=== PATIENT | female | born 2000 | race Caucasian/White ===

== ENCOUNTER 2020-03-02 10:51 | Emergency (ER) | payer MEDICAID, SELFPAY ==
[2020-03-02 10:57] VITALS: BP 131/78; PULSE 85; RESP 18; TEMP 36.6; O2SAT 100; BMI 37.8
--- NOTE | 2020-03-02 12:03 | ED_ITS ---
HPI - Animal Bite General Chief Complaint: Animal Bite Stated Complaint: dog bite Time Seen by Provider: 03/02/20 11:54 Source: patient Mode of arrival: ambulatory Limitations: no limitations History of Present Illness HPI narrative: Stepped on her dog last night causing her dog to bite her left foot. Cleaned with hydrogen peroxide last night and wrapped after applying topical antibiotic ointment. Took a dose of her [id number]'s amoxicillin. No fevers or chills. She tells me that her last tetanus is out-of-date. She also tells me that her dog is up-to-date on all his vaccines and is well. complaint: animal bite Onset (ago): day(s) Animal: dog Description of animal: household pet Mechanism: bite Location - Extremities: left: ankle Pain description: dull Context: provoked Associated symptoms: none Related Data Patient tetanus UTD: No Previous Rx's Medication Instructions Recorded amoxicillin-pot clavulanate 1 tab PO BID #14 tab 03/02/20 [Augmentin] Allergies Allergy/AdvReac Type Severity Reaction Status Date / Time No Known Allergies Allergy Unverified 11/21/19 16:41 [No Known Allergies*] Review of Systems Review of Systems: Yes all other systems are reviewed and are negative Constitutional: Constitutional: Reports no additional constitutional complaints, Denies body ache(s), Denies chills, Denies fever(s), Denies headache(s) and Denies weakness Eyes: Eyes: Reports no additional eye complaints and Denies change in vision ENT: Reports system reviewed and no additional complaints, except as documented, Denies dizziness, Denies headache(s), Denies nasal congestion, Denies nasal discharge and Denies neck pain Cardiovascular: Cardiovascular: Reports no additional cardiovascular complaints, Denies chest pain, Denies leg edema and Denies dyspnea Respiratory: Respiratory: Reports no additional respiratory complaints, Denies cough and Denies dyspnea Gastrointestinal: Gastrointestinal: Reports no additional gastrointestinal complaints, Denies abdominal pain, Denies diarrhea, Denies nausea and Denies vomiting Genitourinary: Genitourinary: Reports no additional female genitourinary complaints and Denies urinary incontinence Musculoskeletal: Musculoskeletal: Reports no additional musculoskeletal complaints, Denies back pain, Denies arthralgias, Denies joint swelling, Denies neck pain, Denies numbness and Denies tingling Integumentary/Breasts: Skin/Breast: Reports system reviewed and no additional complaints, except as docu and Denies rash Comments: bite Neurologic: Reports system reviewed and no additional complaints, except as documented, Denies Abnormal speech present, Denies dizziness, Denies headache(s), Denies numbness, Denies tingling and Denies weakness PMFSH Past Medical History Attestation statement: The following information was validated with the patient. Source: old records reviewed and nursing notes reviewed Medical History Asthma Social History Social History Advance Directives: No Advance Directives Information Provided: No Physical Exam Vital Signs: Vital Signs: Last Vital Signs Temp 97.9 F 03/02/20 10:57 Pulse 85 03/02/20 10:57 Resp 18 03/02/20 10:57 BP 131/78 03/02/20 10:57 Pulse Ox 100 03/02/20 10:57 Body Mass Index 37.8 Const: General: cooperative, healthy appearing, comfortable and no acute distress Orientation/consciousness: patient oriented x3 Limitations: no limitations HENMT: Head: Yes normal to inspection Ears: hearing grossly normal bilaterally General nose exam: Normal external nose present Face and sinus: Yes normal facial exam Mouth: Normal oral and palatal mucosa present Throat: Yes posterior oropharynx normal Eyes: General: appearance normal, both eyes and all related structures Pu pils: Equal, round and reactive pupils present Neck: Neck: Yes normal visual inspection Chest: Chest palpation & inspection: normal inspection of the chest Resp: Effort & Inspection: normal respiratory effort Auscultation: clear to auscultation bilaterally Cardio: Rate: regular rate Rhythm: regular rhythm Peripheral pulses: Peripheral pulses 2+ throughout GI: Inspection: Yes normal to inspection Palpation (GI): Soft to palpation and nontender Auscultation: normal bowel sounds Back/Spine/Pelvis: Thoracic/Lumbar Spine: thoracic and lumbar spine normal to inspection Skin: General skin exam: no rashes or lesions noted Neuro: General: patient oriented x3, no focal motor deficits and normal sensation to monofilament Cranial nerves: Yes Equal, round and reactive pupils present Cognition (Neuro): normal cognition Speech: No Abnormal speech present Gait exam (Neuro): Normal gait present Motor exam (neuro): 5/5 motor strength present throughout Extrem: Other: To the posterior left ankle there are several abrasions noted with no surrounding erythema, exudate, swelling, tenderness. Full range of motion of the ankle with no difficulty. Neurovascularly intact distally General: Yes normal to inspection Course Course Course Narrative: Patient here with dog bite to the left foot. This is her dog and is up-to-date with all immunizations. Wound appears well with no active signs of infection. Tetanus updated here in the emergency department. Given 1st dose of antibiotics and will send home with 7 days of Augmentin prophylactically. Reviewed worrisome signs and symptoms and when to return to the emergency department. Comfortable discharge home. Discharge Plan Discharge Clinical Impression: Bite by animal Dog bite Qualifiers: Encounter type: initial encounter Qualified Code(s): W54.0XXA - Bitten by dog, initial encounter Patient Disposition: Home, Self-Care Instructions: Animal Bite (ED) Additional Instructions: Continue to apply a triple antibiotic ointment daily and keep it covered Start antibiotic tonight at dinner time Return for increasing redness, drainage or difficulty moving the joint Prescriptions: New amoxicillin-pot clavulanate [Augmentin] 875-125 mg tablet 1 tab PO BID Qty: 14 RF: 0 Referrals: Mark Gray MD [Primary Care Provider] - 2 days Interventions: ED Discharge Assessment Last Done: 03/02/20 12:46 Discharge Date/Time: 03/02/20 12:45
[2020-03-02] MEDS: Amoxicillin/Potassium Clav 875 MG TABLET PO (12:23)
--- NOTE | 2020-03-02 12:47 | PC.NURSE ---
animal bite report faxed to [facility]
--- NOTE | 2020-03-02 12:49 | PC.NURSE ---
antibiotics and tetanus updated
== END 2020-03-02 12:45 | disposition home or self-care (01) ==
LOC: HO.ED 12:09
PROVIDERS: Emergency Provider Emergency Medicine Emergency Medical Services; PCP Internal Medicine
DX: S90.812A Abrasion, left foot, initial encounter (principal); W54.0XXA Bitten by dog, initial encounter; Y93.89 Activity, other specified; Y92.019 Unspecified place in single-family (private) house as the place of occurrence of the external cause; Y99.9 Unspecified external cause status
CPT/HCPCS: 90471; 90715; 99283; 99284

== ENCOUNTER 2020-06-17 11:56 | Outpatient (REF) | payer MEDICAID, SELFPAY ==
[2020-06-17 14:00] LABS: MANUAL DIFF FLAG NO
[2020-06-17 14:16] LABS: Basophils Absolute Auto 0.1 X10*3/uL (0.0-0.2); Basophils Percent Auto 1.1 % (0-2); Eosinophils Absolute Auto 0.3 X10*3/uL (0.0-0.4); Eosinophils Percent Auto 2.6 % (0-4); Hematocrit 42.7 % (37-47); Imm Gran Abs Auto 0.03 X10*3/uL (0.00-0.03); Imm Gran Pct Auto 0.3 % (0.0-0.4); Lymphocytes Absolute Auto 2.3 X10*3/uL (1.2-4.9); Lymphocytes Percent Auto 23.3 % (20-40); Mean Corpuscular HGB Conc 32.8 g/dl (31.0-35.0); Mean Corpuscular Hemoglobin 28.5 pg (27.0-33.0); Mean Corpuscular Volume 86.8 fL (80-98); Mean Platelet Volume 12.5 fL (9.4-12.3); Monocytes Absolute Auto 0.7 X10*3/uL (0.1-1.2); Monocytes Percent Auto 7.5 % (2-11); Neutrophils Absolute Auto 6.4 X10*3/uL (2.0-8.3); Neutrophils Percent Auto 65.2 % (45-73); Platelet Count 310 X10*3/uL (160-400); Red Blood Count 4.92 X10*6/uL (4.20-5.50); Red Cell Distribution Width 12.7 % (11.0-16.0); White Blood Count 9.8 X10*3/uL (4.8-10.8)
[2020-06-17 14:26] LABS: Alanine Aminotransferase 139 U/L (0-31); Albumin Level 4.2 g/dL (3.5-5.0); Alkaline Phosphatase 77 U/L (39-117); Anion Gap 14 (12-20); Aspartate Amino Transferase 71 U/L (5-31); Bilirubin Total 0.7 mg/dL (0.0-1.0); Blood Urea Nitrogen 8 mg/dL (9-16); Calcium 9.4 mg/dL (8.4-10.2); Carbon Dioxide 22 mmol/L (22-29); Chloride 108 mmol/L (96-108); Cholesterol 255 mg/dL; Estimated Glomerular Filt Rate > 60; Glucose Fasting 84 mg/dL (60-99); HDL Cholesterol 43 mg/dL; LDL Cholesterol Calculated 140 mg/dl; Potassium 4.5 mmol/L (3.3-5.1); Sodium 139 mmol/L (135-145); Total Protein 7.1 g/dL (6.5-8.0); Triglycerides 361 mg/dL
== END 2020-06-17 11:57 | disposition home or self-care (01) ==
LOC: HO.10HDL 11:56
PROVIDERS: Visit Provider Internal Medicine
DX: E78.00 Pure hypercholesterolemia, unspecified (principal); J45.909 Unspecified asthma, uncomplicated; I10 Essential (primary) hypertension
CPT/HCPCS: 36415; 80053; 80061; 85025; 86140

== ENCOUNTER 2020-08-30 21:08 | Emergency (ER) | payer MEDICAID, SELFPAY ==
[2020-08-30 21:18] VITALS: BP 142/68; PULSE 78; RESP 18; TEMP 36.6; O2SAT 98; BMI 39.2
--- NOTE | 2020-08-30 22:33 | ECG_ITS ---
Test Reason : MED ADJUSTMENT Blood Pressure : / mmHG Vent. Rate : 059 BPM Atrial Rate : 059 BPM P-R Int : 154 ms QRS Dur : 082 ms QT Int : 402 ms P-R-T Axes : 025 017 016 degrees QTc Int : 397 ms Sinus bradycardia with sinus arrhythmia Normal ECG No previous ECGs available Referred By: Julia Mendoza Electronically Signed By:Osorio Berry
--- NOTE | 2020-08-30 22:37 | ED_ITS ---
HPI - Dizziness General Chief Complaint: Dizziness Stated Complaint: WEAKNESS Time Seen by Provider: 08/30/20 22:33 History of Present Illness HPI Narrative: 20-year-old female presents today with having dizziness. Patient worried that she has been on Zoloft and trazodone for last month. There is no fever no chills. No cough no congestion or upper respiratory symptoms. Patient denies any new medication. Worry she might be . She did not miss her Menstruation. No diaphoresis. No rectal bleeding. No other medication. Patient is from home. No chest pain. No diaphoresis. No alcohol no recreational drug use. Related Data Previous Rx's Medication Instructions Recorded amoxicillin-pot clavulanate 1 tab PO BID #14 tab 03/02/20 [Augmentin] Allergies Allergy/AdvReac Type Severity Reaction Status Date / Time No Known Allergies Allergy Unverified 11/21/19 16:41 [No Known Allergies*] Review of Systems Review of Systems: No fever no chills no chest pain or shortness of breath all systems reviewed otherwise negative PMFSH Past Medical History Medical History Anxiety Asthma Social History Social History Advance Directives: No Advance Directives Information Provided: Yes Patient : No Physical Exam Vital Signs: Vital Signs: Last Vital Signs Temp 97.8 F 08/30/20 21:18 Pulse 78 08/30/20 21:18 Resp 18 08/30/20 21:18 BP 142/68 H 08/30/20 21:18 Pulse Ox 98 08/30/20 21:18 Body Mass Index 39.2 Appearance: Alert. Oriented X3. No acute distress. Eyes: Pupils equal, round and reactive to light. ENT: Pharynx normal. Neck: Normal inspection. Neck supple. No lymph nodes noted. No crepitus CVS: Normal heart rate and rhythm. Pulses normal. Normal S1 and S2 Respiratory: No respiratory distress. Breath sounds normal. No Wheezing. No rales Abdomen: Soft and nontender. No rigidity. No distention. good BS x4 Skin: Skin warm and dry. Normal skin color. Normal skin turgor. Extremities: No lower extremity edema. Neurovascular intact to all extremities. No Lacerations. No Rash Neuro: Oriented X 3. No motor deficit. No sensory deficit. Moving all extermities. No slurred speech MDM - Dizziness MDM Narrative Medical decision making narrative: UA negative for infection. Electrolytes unremarkable. LFTs are baseline. test negative. Will discharge patient home close follow-up on an outpatient basis. Lab Data Result diagrams: 08/30/20 23:48 08/30/20 23:48 Labs: Lab Results 08/30/20 08/30/20 08/30/20 Range/Units 23:42 23:42 23:42 WBC (4.8-10.8) X10*3/uL RBC (4.20-5.50) X10*6/uL Hgb (12.0-16.0) g/dl Hct (37-47) % MCV (80-98) fL MCH (27.0-33.0) pg MCHC (31.0-35.0) g/dl RDW (11.0-16.0) % Plt Count (160-400) X10*3/uL MPV (9.4-12.3) fL Immature Gran % (Auto) (0.0-0.4) % Neut % (Auto) (45-73) % Lymph % (Auto) (20-40) % [place] % (Auto) (2-11) % Eos % (Auto) (0-4) % Baso % (Auto) (0-2) % Lymph # (Auto) (1.2-4.9) X10*3/uL [place] # (Auto) (0.1-1.2) X10*3/uL Eos # (Auto) (0.0-0.4) X10*3/uL Baso # (Auto) (0.0-0.2) X10*3/uL Abs Immat Gran (auto) (0.00-0.03) X10*3/uL Absolute Neuts (auto) (2.0-8.3) X10*3/uL Absolute Nucleated RBC (0.0-0.012) X10*3/uL Nucleated RBC % (auto) (0.0-0.2) /100WBC Sodium (135-145) mmol/L Potassium (3.3-5.1) mmol/L Chloride (96-108) mmol/L Carbon Dioxide (22-29) mmol/L Anion Gap (12-20) BUN (9-16) mg/dL Creatinine (0.5-1.4) mg/dL Estim Creat Clear Calc Estimated GFR Random Glucose (60-115) mg/dL Calcium (8.4-10.2) mg/dL Total Bilirubin (0.0-1.0) mg/dL AST (5-31) U/L ALT (0-31) U/L Alkaline Phosphatase (39-117) U/L Total Protein (6.5-8.0) g/dL Albumin (3.5-5.0) g/dL Urine Color YELLOW Urine Appearance CLEAR Urine pH 6.0 (5.0-8.0) Ur Specific [place] >= 1.030 H (1.005-1.025) Urine Protein NEG (NEG-TRACE) MG/DL Urine Glucose (UA) NEG (NEG) MG/DL Urine Ketones NEG (NEG) MG/DL Urine Blood NEG (NEG) Urine Nitrite NEG (NEG) Ur Leukocyte Esterase NEG (NEG) Urine Test NEGATIVE (NEGATIVE) Urine Opiates Screen Not Detected (Not Detect) Ur Barbiturates Screen Not Detected (Not Detect) Ur Phencyclidine Scrn Not Detected (Not Detect) Ur Amphetamines Screen Not Detected (Not Detect) U Benzodiazepines Scrn Not Detected (Not Detect) Urine Cocaine Screen Not Detected (Not Detect) U Marijuana (THC) Screen Not Detected (Not Detect) Ethyl Alcohol mg/dL 08/30/20 08/30/20 08/30/20 Range/Units 23:48 23:48 23:48 WBC 13.5 H (4.8-10.8) X10*3/uL RBC 5.00 (4.20-5.50) X10*6/uL Hgb 14.3 (12.0-16.0) g/dl Hct 42.8 (37-47) % MCV 85.6 (80-98) fL MCH 28.6 (27.0-33.0) pg MCHC 33.4 (31.0-35.0) g/dl RDW 12.7 (11.0-16.0) % Plt Count 310 (160-400) X10*3/uL MPV 11.6 (9.4-12.3) fL Immature Gran % (Auto) 0.2 (0.0-0.4) % Neut % (Auto) 59.5 (45-73) % Lymph % (Auto) 30.5 (20-40) % [place] % (Auto) 7.3 (2-11) % Eos % (Auto) 1.9 (0-4) % Baso % (Auto) 0.6 (0-2) % Lymph # (Auto) 4.1 (1.2-4.9) X10*3/uL [place] # (Auto) 1.0 (0.1-1.2) X10*3/uL Eos # (Auto) 0.3 (0.0-0.4) X10*3/uL Baso # (Auto) 0.1 (0.0-0.2) X10*3/uL Abs Immat Gran (auto) 0.03 (0.00-0.03) X10*3/uL Absolute Neuts (auto) 8.0 (2.0-8.3) X10*3/uL Absolute Nucleated RBC 0.000 (0.0-0.012) X10*3/uL Nucleated RBC % (auto) 0.0 (0.0-0.2) /100WBC Sodium 141 (135-145) mmol/L Potassium 4.4 (3.3-5.1) mmol/L Chloride 109 H (96-108) mmol/L Carbon Dioxide 24 (22-29) mmol/L Anion Gap 12 (12-20) BUN 10 (9-16) mg/dL Creatinine 0.73 (0.5-1.4) mg/dL Estim Creat Clear Calc 126.7 Estimated GFR > 60 Random Glucose 92 (60-115) mg/dL Calcium 9.6 (8.4-10.2) mg/dL Total Bilirubin 0.3 (0.0-1.0) mg/dL AST 32 H D (5-31) U/L ALT 64 H (0-31) U/L Alkaline Phosphatase 86 (39-117) U/L Total Protein 7.3 (6.5-8.0) g/dL Albumin 4.3 (3.5-5.0) g/dL Urine Color Urine Appearance Urine pH (5.0-8.0) Ur Specific [place] (1.005-1.025) Urine Protein (NEG-TRACE) MG/DL Urine Glucose (UA) (NEG) MG/DL Urine Ketones (NEG) MG/DL Urine Blood (NEG) Urine Nitrite (NEG) Ur Leukocyte Esterase (NEG) Urine Test (NEGATIVE) Urine Opiates Screen (Not Detect) Ur Barbiturates Screen (Not Detect) Ur Phencyclidine Scrn (Not Detect) Ur Amphetamines Screen (Not Detect) U Benzodiazepines Scrn (Not Detect) Urine Cocaine Screen (Not Detect) U Marijuana (THC) Screen (Not Detect) Ethyl Alcohol < 10 mg/dL ECG Data Attestation: I personally reviewed and interpreted this ECG as follows: Interpretation: Sinus heart rate is 60 [place] QRS QT within normal limits is no acute ST segment elevation noted. Discharge Plan Discharge Clinical Impression: Dizziness Patient Disposition: Home, Self-Care Instructions: Dizziness (ED) Prescriptions: No Action amoxicillin-pot clavulanate [Augmentin] 875-125 mg tablet 1 tab PO BID Qty: 14 RF: 0 Referrals: Mark Gray MD [Primary Care Provider] - 2 days
[2020-08-30 23:54] LABS: MANUAL DIFF FLAG NO
[2020-08-30 23:56] LABS: Basophils Absolute Auto 0.1 X10*3/uL (0.0-0.2); Basophils Percent Auto 0.6 % (0-2); Eosinophils Absolute Auto 0.3 X10*3/uL (0.0-0.4); Eosinophils Percent Auto 1.9 % (0-4); Hematocrit 42.8 % (37-47); Hemoglobin 14.3 g/dl (12.0-16.0); Imm Gran Abs Auto 0.03 X10*3/uL (0.00-0.03); Imm Gran Pct Auto 0.2 % (0.0-0.4); Lymphocytes Absolute Auto 4.1 X10*3/uL (1.2-4.9); Lymphocytes Percent Auto 30.5 % (20-40); Mean Corpuscular HGB Conc 33.4 g/dl (31.0-35.0); Mean Corpuscular Hemoglobin 28.6 pg (27.0-33.0); Mean Corpuscular Volume 85.6 fL (80-98); Mean Platelet Volume 11.6 fL (9.4-12.3); Monocytes Percent Auto 7.3 % (2-11); Neutrophils Percent Auto 59.5 % (45-73); Platelet Count 310 X10*3/uL (160-400); Red Cell Distribution Width 12.7 % (11.0-16.0); White Blood Count 13.5 X10*3/uL (4.8-10.8)
[2020-08-30 23:57] LABS: Glucose Urine UA NEG (NEG); Leukocyte Esterase Urine NEG (NEG); Nitrite Urine NEG (NEG); Specific Gravity - Urine >= 1.030 (1.005-1.025); Urine Blood NEG (NEG); Urine Ketones NEG (NEG); Urine Protein NEG (NEG-TRACE)
[2020-08-30 23:58] LABS: Appearance Urine CLEAR; Color Urine YELLOW
[2020-08-30 23:59] LABS: UPreg QC Valid YES; Urine Pregnancy NEGATIVE (NEGATIVE)
[2020-08-31 00:21] LABS: Ethanol < 10 mg/dL
[2020-08-31 00:22] LABS: Amphetamine Screen Urine Not Detected (Not Detect); Barbiturates, Urine Not Detected (Not Detect); Benzodiazepines Screen Urine Not Detected (Not Detect); Cannabinoid Screen Urine Not Detected (Not Detect); Cocaine Screen Urine Not Detected (Not Detect); Opiate Screen Urine Not Detected (Not Detect); Phencyclidine Screen Urine Not Detected (Not Detect)
[2020-08-31 00:23] LABS: Alanine Aminotransferase 64 U/L (0-31); Albumin Level 4.3 g/dL (3.5-5.0); Alkaline Phosphatase 86 U/L (39-117); Anion Gap 12 (12-20); Aspartate Amino Transferase 32 U/L (5-31); Bilirubin Total 0.3 mg/dL (0.0-1.0); Blood Urea Nitrogen 10 mg/dL (9-16); Calcium 9.6 mg/dL (8.4-10.2); Carbon Dioxide 24 mmol/L (22-29); Chloride 109 mmol/L (96-108); Creatinine Clr Calc Pharmacy 126.7; Estimated Glomerular Filt Rate > 60; Glucose Random 92 mg/dL (60-115); Potassium 4.4 mmol/L (3.3-5.1); Sodium 141 mmol/L (135-145); Total Protein 7.3 g/dL (6.5-8.0)
== END 2020-08-31 01:11 | disposition home or self-care (01) ==
PROVIDERS: Emergency Provider Emergency Medicine Emergency Medical Services; PCP Internal Medicine
DX: R42 Dizziness and giddiness (principal); F41.9 Anxiety disorder, unspecified; J45.909 Unspecified asthma, uncomplicated; Z79.899 Other long term (current) drug therapy
CPT/HCPCS: 36415; 80053; 80307; 81003; 81025; 82077; 85025; 93005; 99283

== ENCOUNTER 2021-02-17 22:03 | Emergency (ER) | payer MEDICAID, SELFPAY ==
[2021-02-17 22:34] VITALS: BP 127/75; PULSE 88; RESP 18; TEMP 36.6; O2SAT 98; BMI 41.8
== END 2021-02-18 01:09 | disposition left against medical advice (07) ==
PROVIDERS: Emergency Provider Emergency Medicine; PCP Internal Medicine
DX: J45.909 Unspecified asthma, uncomplicated (principal); Z79.899 Other long term (current) drug therapy
CPT/HCPCS: 99281; 99282

== ENCOUNTER 2021-03-02 11:54 | Outpatient (REF) | payer MEDICAID, SELFPAY ==
[2021-03-02 14:26] LABS: MANUAL DIFF FLAG NO
[2021-03-02 14:38] LABS: Basophils Absolute Auto 0.1 X10*3/uL (0.0-0.2); Basophils Percent Auto 0.6 % (0-2); Eosinophils Percent Auto 0.2 % (0-4); Hematocrit 44.8 % (37.0-47.0); Hemoglobin 14.6 g/dl (12.0-16.0); Imm Gran Abs Auto 0.04 X10*3/uL (0.00-0.03); Imm Gran Pct Auto 0.3 % (0.0-0.4); Lymphocytes Absolute Auto 1.3 X10*3/uL (1.2-4.9); Lymphocytes Percent Auto 10.6 % (20-40); Mean Corpuscular HGB Conc 32.6 g/dl (31.0-35.0); Mean Corpuscular Hemoglobin 27.9 pg (27.0-33.0); Mean Corpuscular Volume 85.7 fL (80.0-98.0); Mean Platelet Volume 11.6 fL (9.4-12.3); Monocytes Absolute Auto 0.5 X10*3/uL (0.1-1.2); Monocytes Percent Auto 3.7 % (2-11); Neutrophils Absolute Auto 10.7 x10*3/uL (2.0-8.3); Neutrophils Percent Auto 84.6 % (45-73); Platelet Count 359 X10*3/uL (160-400); Red Blood Count 5.23 X10*6/uL (4.20-5.50); Red Cell Distribution Width 13.2 % (11.0-16.0); White Blood Count 12.6 X10*3/uL (4.8-10.8)
[2021-03-02 15:21] LABS: Alanine Aminotransferase 95 U/L (0-31); Albumin Level 4.4 g/dL (3.5-5.0); Alkaline Phosphatase 100 U/L (39-117); Anion Gap 12 (12-20); Aspartate Amino Transferase 45 U/L (5-31); Bilirubin Total 0.6 mg/dL (0.0-1.0); Blood Urea Nitrogen 8 mg/dL (9-16); C Reactive Protein 0.86 mg/dL (< or = 0.50); Calcium 10.3 mg/dL (8.4-10.2); Carbon Dioxide 26 mmol/L (22-29); Chloride 107 mmol/L (96-108); Estimated Glomerular Filt Rate > 60; Glucose Fasting 88 mg/dL (60-99); Potassium 4.3 mmol/L (3.3-5.1); Sodium 141 mmol/L (135-145); Total Protein 8.1 g/dL (6.5-8.0)
== END 2021-03-02 11:55 | disposition home or self-care (01) ==
LOC: HO.10HDL 11:54
PROVIDERS: Visit Provider Internal Medicine
DX: J45.909 Unspecified asthma, uncomplicated (principal); R79.89 Other specified abnormal findings of blood chemistry
CPT/HCPCS: 36415; 80053; 85025; 86140

== ENCOUNTER 2021-03-08 15:44 | Outpatient (REF) | payer MEDICAID, SELFPAY ==
[2021-03-08 16:37] LABS: Influenza A PCR NEGATIVE (Negative); Influenza B PCR NEGATIVE (Negative); Resp Syncy Virus RNA Qual PCR NEGATIVE (Negative); SARS COV2 PCR INHOUSE NEGATIVE (Negative)
== END 2021-03-08 15:45 | disposition home or self-care (01) ==
LOC: HO.LNP 15:44
PROVIDERS: Visit Provider Internal Medicine
DX: Z02.79 Encounter for issue of other medical certificate (principal); Z20.822 Contact with and (suspected) exposure to COVID-19
CPT/HCPCS: 0241U

== ENCOUNTER 2021-05-06 17:37 | Emergency (ER) | payer MEDICAID, SELFPAY ==
[2021-05-06 17:47] VITALS: BP 130/79; PULSE 89; RESP 18; TEMP 37; O2SAT 98; BMI 43.2
[2021-05-06 18:45] LABS: MANUAL DIFF FLAG NO
[2021-05-06 18:50] LABS: UPreg QC Valid YES; Urine Pregnancy NEGATIVE (NEGATIVE)
[2021-05-06 18:51] LABS: Basophils Absolute Auto 0.1 X10*3/uL (0.0-0.2); Basophils Percent Auto 0.7 % (0-2); Eosinophils Absolute Auto 0.2 X10*3/uL (0.0-0.4); Eosinophils Percent Auto 1.9 % (0-4); Hematocrit 43.7 % (37.0-47.0); Hemoglobin 14.5 g/dl (12.0-16.0); Imm Gran Abs Auto 0.03 X10*3/uL (0.00-0.03); Imm Gran Pct Auto 0.3 % (0.0-0.4); Lymphocytes Percent Auto 27.2 % (20-40); Mean Corpuscular HGB Conc 33.2 g/dl (31.0-35.0); Mean Corpuscular Volume 84.5 fL (80.0-98.0); Mean Platelet Volume 11.2 fL (9.4-12.3); Monocytes Absolute Auto 0.8 X10*3/uL (0.1-1.2); Monocytes Percent Auto 7.6 % (2-11); Neutrophils Absolute Auto 6.8 x10*3/uL (2.0-8.3); Neutrophils Percent Auto 62.3 % (45-73); Platelet Count 355 X10*3/uL (160-400); Red Blood Count 5.17 X10*6/uL (4.20-5.50); Red Cell Distribution Width 12.8 % (11.0-16.0)
[2021-05-06 19:02] LABS: COVID-19 Test Negative (Negative)
[2021-05-06 19:08] LABS: Alanine Aminotransferase 125 U/L (0-31); Albumin Level 4.3 g/dL (3.5-5.0); Alkaline Phosphatase 91 U/L (39-117); Anion Gap 13 (12-20); Aspartate Amino Transferase 70 U/L (5-31); Bilirubin Direct 0.2 mg/dL (0.0-0.5); Bilirubin Total 0.6 mg/dL (0.0-1.0); Blood Urea Nitrogen 7 mg/dL (9-16); Calcium 9.6 mg/dL (8.4-10.2); Carbon Dioxide 25 mmol/L (22-29); Chloride 106 mmol/L (96-108); Creatinine Clr Calc Pharmacy 141.2; Estimated Glomerular Filt Rate > 60; Glucose Random 90 mg/dL (60-115); Lipase 35 U/L (8-78); Potassium 3.8 mmol/L (3.3-5.1); Sodium 140 mmol/L (135-145); Total Protein 7.5 g/dL (6.5-8.0)
[2021-05-06 19:23] LABS: Appearance Urine CLEAR; Color Urine YELLOW; Glucose Urine UA NEG (NEG); Leukocyte Esterase Urine NEG (NEG); Nitrite Urine NEG (NEG); PH 5.5 (5.0-8.0); Specific Gravity - Urine >= 1.030 (1.005-1.025); Urine Blood NEG (NEG); Urine Ketones NEG (NEG); Urine Protein NEG (NEG-TRACE)
--- NOTE | 2021-05-06 21:10 | ED.NAVMDI ---
HPI - Nausea/Vomiting/Diarrhea General Chief complaint: Abdominal Pain Stated complaint: Dr sent over for abdominal pain, needs an IV, diar Time Seen by Provider: 05/06/21 20:33 Source: patient Mode of arrival: ambulatory Limitations: no limitations History of Present Illness HPI Narrative: 21-year-old female who presents emergency department for evaluation of diarrhea and abdominal pain. Patient states that she has had diarrhea for approximately 3 days. She states that she has 5 soft brown stools per day. She states that the stools are large in amount. She has not noticed any blood in the stools. She states that she is also having intermittent left lower abdominal cramping which precedes the diarrhea. She states that the cramping is 6/10 at its worst. She denied fever or chills. She had nausea but no vomiting. She denied rhinorrhea, sore throat, chest pain, cough, shortness of breath, myalgias or arthralgias. She states that she is feeling weak, lightheaded and dizzy. She states that she has occasional episodes of diarrhea in the past. She states that her brother has ulcerative colitis. The patient [employer] vaccine. She denied any recent travel out of the country, there are no sick contacts, she has not been on antibiotics recently. MD elicited complaint: diarrhea and abdominal pain Onset (ago): day(s) (2) Description of diarrhea: semi-solid (Soft, brown) Associated nausea: Yes Associated abdominal pain: Yes Location of pain: LLQ Pain consistency: intermittent (Procedures diarrhea) Severity: moderate Pain scale (0-10): 6 Quality: cramping Exacerbating factors: eating and other (Diarrhea) Relieving factors: none Associated symptoms: nausea/vomiting (Nausea only) and weakness Treatment prior to arrival: immodium (Twice a day with no effect) Related Data Previous Rx's Medication Instructions Recorded amoxicillin 875 mg-potassium 1 tab PO BID #14 tab 03/02/20 clavulanate 125 mg tablet (Augmentin) Allergies Allergy/AdvReac Type Severity Reaction Status Date / Time No Known Allergies Allergy Verified 05/06/21 17:45 [No Known Allergies*] Review of Systems Review of Systems: Yes all other systems are reviewed and are negative Gastrointestinal: Gastrointestinal: Reports nausea PMFSH Past Medical History PMFSH Narrative: Past surgical history: Cholecystectomy in 2019 Social history: The patient denies tobacco, alcohol use, she occasionally smokes marijuana. Medical History Anxiety Asthma Social History Social History Advance Directives: No Advance Directives Information Provided: No Physical Exam Vital Signs: Vital Signs: Last Vital Signs Temp 98.6 F 05/06/21 17:47 Pulse 89 05/06/21 17:47 Resp 18 05/06/21 17:47 BP 130/79 05/06/21 17:47 Pulse Ox 98 05/06/21 17:47 BMI result Body Mass Index 43.2 Const: General: cooperative and no acute distress Orientation/consciousness: oriented to person and oriented to place Limitations: no limitations HENMT: Head: Yes normal to inspection, Yes normocephalic and Yes atraumatic Ears: external ears normal General nose exam: Normal external nose present Face and sinus: Yes normal facial exam Mouth: Normal oral and palatal mucosa present Throat: Yes posterior oropharynx normal Eyes: General: appearance normal, both eyes and all related structures Pupils: Equal, round and reactive pupils present Neck: Neck: Yes normal visual inspection, Yes no lymphadenopathy, Yes trachea midline and Yes supple Chest: Chest palpation & inspection: normal inspection of the chest and normal palpation of entire chest wall Resp: Effort & Inspection: normal respiratory effort and able to speak in complete sentences Auscultation: clear to auscultation bilaterally Cardio: Rate: regular rate Rhythm: regular rhythm Heart sounds: S1 normal heart sound present, S2 normal heart sound present and no murmurs GI: Inspection: Yes normal to inspection Palpation (GI): Soft to palpation, Tenderness to palpation present (GI) in the LLQ and no guarding Auscultation: normal bowel sounds : General: Yes no CVA tenderness Back/Spine/Pelvis: Back: no CVA tenderness Skin: General skin exam: no rashes or lesions noted Neuro: General: oriented to person and oriented to place Cranial nerves: Yes CN's II-XII intact bilaterally and Yes Equal, round and reactive pupils present Cognition (Neuro): normal cognition Motor exam (neuro): 5/5 motor strength present throughout Extrem: General: Yes normal to inspection Psych: Appearance: grossly normal Speech and movement: Normal speech and movement present Affect: normal affect Attitude: cooperative Thought process: Normal thought process present Thought content: Normal thought content present Course Course Course Narrative: 21-year-old female who presents emergency department for evaluation of 3 days of diarrheal stool (soft, semi formed brown stool with no blood), nausea, left lower abdominal pain preceding the diarrhea, weakness, lightheadedness x3 days. Patient has had no recent travel. She has not been on antibiotics. There are no sick contacts. Physical examination revealed normal vital signs. Exam did reveal left lower quadrant tenderness otherwise was unremarkable. Laboratory evaluation [place] [address]. She has an elevated AST and ALT of 70 and 125 with a normal alk-phos and bilirubin. Patient's urinalysis was negative. Urine test was negative. COVID-19 test was negative. Patient's presentation is consistent with a viral infection or possibly food poisoning however she has no sick contacts. At this time I do not think that the patient needs IV fluid. The patient will be started on Imodium 4 mg after 1st loose stool and then 2 mg after each loose stool up to 8 pills per day. She was advised to increase her fluid intake, she was given printed and verbal instructions and discharged home. MDM - Nausea/Vomiting/Diarrhea Lab Data Result diagrams: 05/06/21 18:39 05/06/21 18:39 Labs: Lab Results 05/06/21 05/06/21 05/06/21 Range/Units 18:36 18:39 18:39 WBC 11.0 H (4.8-10.8) X10*3/uL RBC 5.17 (4.20-5.50) X10*6/uL Hgb 14.5 (12.0-16.0) g/dl Hct 43.7 (37.0-47.0) % MCV 84.5 (80.0-98.0) fL MCH 28.0 (27.0-33.0) pg MCHC 33.2 (31.0-35.0) g/dl RDW 12.8 (11.0-16.0) % Plt Count 355 (160-400) X10*3/uL MPV 11.2 (9.4-12.3) fL Immature Gran % (Auto) 0.3 (0.0-0.4) % Neut % (Auto) 62.3 (45-73) % Lymph % (Auto) 27.2 (20-40) % [place] % (Auto) 7.6 (2-11) % Eos % (Auto) 1.9 (0-4) % Baso % (Auto) 0.7 (0-2) % Lymph # (Auto) 3.0 (1.2-4.9) X10*3/uL [place] # (Auto) 0.8 (0.1-1.2) X10*3/uL Eos # (Auto) 0.2 (0.0-0.4) X10*3/uL Baso # (Auto) 0.1 (0.0-0.2) X10*3/uL Abs Immat Gran (auto) 0.03 (0.00-0.03) X10*3/uL Absolute Neuts (auto) 6.8 (2.0-8.3) x10*3/uL Absolute Nucleated RBC 0.000 (0.0-0.012) X10*3/uL Nucleated RBC % (auto) 0.0 (0.0-0.2) /100WBC Sodium 140 (135-145) mmol/L Potassium 3.8 (3.3-5.1) mmol/L Chloride 106 (96-108) mmol/L Carbon Dioxide 25 (22-29) mmol/L Anion Gap 13 (12-20) BUN 7 L (9-16) mg/dL Creatinine 0.66 (0.5-1.4) mg/dL Estim Creat Clear Calc 141.2 Estimated GFR > 60 Random Glucose 90 (60-115) mg/dL Calcium 9.6 D (8.4-10.2) mg/dL Total Bilirubin 0.6 (0.0-1.0) mg/dL Direct Bilirubin 0.2 (0.0-0.5) mg/dL AST 70 H (5-31) U/L ALT 125 H (0-31) U/L Alkaline Phosphatase 91 (39-117) U/L Total Protein 7.5 (6.5-8.0) g/dL Albumin 4.3 (3.5-5.0) g/dL Lipase 35 (8-78) U/L Urine Color Urine Appearance Urine pH (5.0-8.0) Ur Specific [place] (1.005-1.025) Urine Protein (NEG-TRACE) MG/DL Urine Glucose (UA) (NEG) MG/DL Urine Ketones (NEG) MG/DL Urine Blood (NEG) Urine Nitrite (NEG) Ur Leukocyte Esterase (NEG) Urine Test (NEGATIVE) COVID-19 ([facility]) Negative (Negative) COVID-19 Clin Com See Note 05/06/21 05/06/21 Range/Units 18:39 18:39 WBC (4.8-10.8) X10*3/uL RBC (4.20-5.50) X10*6/uL Hgb (12.0-16.0) g/dl Hct (37.0-47.0) % MCV (80.0-98.0) fL MCH (27.0-33.0) pg MCHC (31.0-35.0) g/dl RDW (11.0-16.0) % Plt Count (160-400) X10*3/uL MPV (9.4-12.3) fL Immature Gran % (Auto) (0.0-0.4) % Neut % (Auto) (45-73) % Lymph % (Auto) (20-40) % [place] % (Auto) (2-11) % Eos % (Auto) (0-4) % Baso % (Auto) (0-2) % Lymph # (Auto) (1.2-4.9) X10*3/uL [place] # (Auto) (0.1-1.2) X10*3/uL Eos # (Auto) (0.0-0.4) X10*3/uL Baso # (Auto) (0.0-0.2) X10*3/uL Abs Immat Gran (auto) (0.00-0.03) X10*3/uL Absolute Neuts (auto) (2.0-8.3) x10*3/uL Absolute Nucleated RBC (0.0-0.012) X10*3/uL Nucleated RBC % (auto) (0.0-0.2) /100WBC Sodium (135-145) mmol/L Potassium (3.3-5.1) mmol/L Chloride (96-108) mmol/L Carbon Dioxide (22-29) mmol/L Anion Gap (12-20) BUN (9-16) mg/dL Creatinine (0.5-1.4) mg/dL Estim Creat Clear Calc Estimated GFR Random Glucose (60-115) mg/dL Calcium (8.4-10.2) mg/dL Total Bilirubin (0.0-1.0) mg/dL Direct Bilirubin (0.0-0.5) mg/dL AST (5-31) U/L ALT (0-31) U/L Alkaline Phosphatase (39-117) U/L Total Protein (6.5-8.0) g/dL Albumin (3.5-5.0) g/dL Lipase (8-78) U/L Urine Color YELLOW Urine Appearance CLEAR Urine pH 5.5 (5.0-8.0) Ur Specific [place] >= 1.030 H (1.005-1.025) Urine Protein NEG (NEG-TRACE) MG/DL Urine Glucose (UA) NEG (NEG) MG/DL Urine Ketones NEG (NEG) MG/DL Urine Blood NEG (NEG) Urine Nitrite NEG (NEG) Ur Leukocyte Esterase NEG (NEG) Urine Test NEGATIVE (NEGATIVE) COVID-19 ([facility]) (Negative) COVID-19 Clin Com Discharge Plan Discharge Clinical Impression: Transaminitis Diarrhea Qualifiers: Diarrhea type: unspecified type Qualified Code(s): R19.7 - Diarrhea, unspecified Patient Disposition: Home, Self-Care Instructions: Acute Diarrhea (ED) Additional Instructions: At this time, I believe that your diarrhea is either caused by a viral infection or food poisoning (bacteria/toxin). Both of these illnesses are self-limiting get better without any treatment. Make sure you increase the amount of fluid that you drink to prevent dehydration from the diarrhea. For diarrhea I want you to take Imodium 2 mg pills. Take 2 pills after the 1st loose, diarrheal stool then 1 pill after each loose, diarrheal stool up to 8 pills per day. This usually stops diarrhea within 24 to 48 hours. Your liver transaminases (AST and ALT) were elevated. Your AST today was 70 in your ALT was 125. You have had similar elevations as far back as 09/16/2019. These elevations are not caused by your diary today. The cause may be accumulation of fat in your liver (fatty liver) or sometimes this can be a chronic viral infection such as hepatitis-B or hepatitis-C. You should discuss these elevated transaminases with your primary provider and you should have an ultrasound of your liver as an outpatient and possibly other outpatient blood work depending on the ultrasound. Follow-up with your doctor in 2 days. Please return to the emergency department if your symptoms get worse or if you develop any symptoms that are concerning to you. Prescriptions: No Action amoxicillin-pot clavulanate [Augmentin] 875-125 mg tablet 1 tab PO BID Qty: 14 0RF
== END 2021-05-06 21:24 | disposition home or self-care (01) ==
PROVIDERS: Emergency Provider Emergency Medicine Emergency Medical Services; PCP Internal Medicine
DX: R19.7 Diarrhea, unspecified (principal); R74.01 Elevation of levels of liver transaminase levels; R10.9 Unspecified abdominal pain; Z20.822 Contact with and (suspected) exposure to COVID-19
CPT/HCPCS: 80048; 80076; 81003; 81025; 83690; 85025; 87635; 99282; 99283

== ENCOUNTER 2021-06-29 12:55 | Outpatient (REF) | payer MEDICAID, SELFPAY ==
--- NOTE | ~2021-06-29 | XR_ITS ---
EXAMINATION: XR FOOT, LEFT CLINICAL INFORMATION: Left foot pain. COMPARISON: None TECHNIQUE: AP, lateral, and oblique views of the left foot. FINDINGS: There is a small retrocalcaneal enthesophyte. No visible acute fracture or dislocation seen. There is no subluxation. The ankle mortise and subtalar joints are normal. There is mild dorsal proximal and midfoot soft tissue swelling. The joint spaces are maintained normal. XR/XR foot LT min 3V IMPRESSION: Mild dorsal proximal and midfoot soft tissue swelling but no underlying fracture or dislocation. Small retrocalcaneal enthesophyte..
== END 2021-06-29 12:56 | disposition home or self-care (01) ==
LOC: HO.XRAY 12:55
PROVIDERS: PCP Internal Medicine; Visit Provider Internal Medicine
DX: M79.672 Pain in left foot (principal)
CPT/HCPCS: 73630

== ENCOUNTER 2021-07-13 16:38 | Emergency (ER) | payer MEDICAID, SELFPAY ==
--- NOTE | 2021-07-13 | ECG_ITS ---
Test Reason : CHEST TIGHTNESS Blood Pressure : / mmHG Vent. Rate : 116 BPM Atrial Rate : 116 BPM P-R Int : 138 ms QRS Dur : 082 ms QT Int : 322 ms P-R-T Axes : 037 -03 032 degrees QTc Int : 447 ms Sinus tachycardia Cannot rule out Anterior infarct (cited on or before 13-JUL-2021) Abnormal ECG When compared with ECG of 30-AUG-2020 22:56, Vent. rate has increased BY 57 BPM Referred By: Generic ED Physician Electronically Signed By:NEVA CHRIS MD
--- NOTE | ~2021-07-13 | XR_ITS ---
EXAMINATION: XR CHEST CLINICAL INFORMATION: Chest pain. COMPARISON: 03/05/2016 chest radiographs. TECHNIQUE: Frontal view of the chest was obtained. FINDINGS: No significant abnormality is noted involving the heart, lungs, mediastinum, bony thorax or soft tissues. XR/XR chest 1V IMPRESSION: No acute cardiopulmonary process.
[2021-07-13 16:42] VITALS: BP 138/77; PULSE 118; RESP 18; TEMP 36.7; O2SAT 98; BMI 46.8
[2021-07-13 17:02] LABS: MANUAL DIFF FLAG NO
[2021-07-13 17:05] LABS: Basophils Absolute Auto 0.1 X10*3/uL (0.0-0.2); Basophils Percent Auto 0.6 % (0-2); Eosinophils Absolute Auto 0.1 X10*3/uL (0.0-0.4); Eosinophils Percent Auto 0.7 % (0-4); Hemoglobin 13.6 g/dl (12.0-16.0); Imm Gran Abs Auto 0.05 X10*3/uL (0.00-0.03); Imm Gran Pct Auto 0.4 % (0.0-0.4); Lymphocytes Absolute Auto 1.4 X10*3/uL (1.2-4.9); Lymphocytes Percent Auto 11.1 % (20-40); Mean Corpuscular Hemoglobin 28.7 pg (27.0-33.0); Mean Corpuscular Volume 84.4 fL (80.0-98.0); Mean Platelet Volume 11.3 fL (9.4-12.3); Monocytes Absolute Auto 0.7 X10*3/uL (0.1-1.2); Monocytes Percent Auto 5.7 % (2-11); Neutrophils Percent Auto 81.5 % (45-73); Platelet Count 299 X10*3/uL (160-400); Red Blood Count 4.74 X10*6/uL (4.20-5.50); Red Cell Distribution Width 12.8 % (11.0-16.0); White Blood Count 12.2 X10*3/uL (4.8-10.8)
[2021-07-13 17:17] LABS: Anion Gap 15 (12-20); Blood Urea Nitrogen 9 mg/dL (9-16); Calcium 10.1 mg/dL (8.4-10.2); Carbon Dioxide 24 mmol/L (22-29); Chloride 106 mmol/L (96-108); Creatinine Clr Calc Pharmacy 141.8; Estimated Glomerular Filt Rate > 60; Glucose Random 91 mg/dL (60-115); Potassium 4.4 mmol/L (3.3-5.1); Sodium 141 mmol/L (135-145)
[2021-07-13 17:20] LABS: Influenza A Negative (Negative); Influenza B2 Negative (Negative)
[2021-07-13 17:24] LABS: COVID-19 Test Negative (Negative); IDNOW Serial# 08D9AD1C; Troponin-I High Sensitivity < 3.5 ng/L (<3.5-17.0)
== END 2021-07-13 21:51 | disposition left against medical advice (07) ==
PROVIDERS: Emergency Provider Emergency Medicine; PCP Internal Medicine
DX: R07.89 Other chest pain (principal); Z20.822 Contact with and (suspected) exposure to COVID-19; Z79.899 Other long term (current) drug therapy
CPT/HCPCS: 36415; 71045; 80048; 84484; 85025; 87502; 87635; 93005; 99283

== ENCOUNTER 2022-01-03 14:29 | Outpatient (REF) | payer MEDICAID, SELFPAY ==
[2022-01-03 15:36] LABS: Influenza A PCR NEGATIVE (Negative); Influenza B PCR NEGATIVE (Negative); Resp Syncy Virus RNA Qual PCR NEGATIVE (Negative); SARS COV2 PCR INHOUSE NEGATIVE (Negative)
== END 2022-01-03 14:30 | disposition home or self-care (01) ==
LOC: HO.LNP 14:29
PROVIDERS: Visit Provider Internal Medicine
DX: R50.9 Fever, unspecified (principal); R11.10 Vomiting, unspecified; Z20.822 Contact with and (suspected) exposure to COVID-19
CPT/HCPCS: 0241U

== ENCOUNTER 2022-07-21 14:31 | Outpatient (REF) | payer MEDICAID, SELFPAY ==
[2022-07-21 14:50] LABS: MANUAL DIFF FLAG NO
[2022-07-21 15:29] LABS: Basophils Absolute Auto 0.1 X10*3/uL (0.0-0.2); Basophils Percent Auto 0.8 % (0-2); Eosinophils Absolute Auto 0.2 X10*3/uL (0.0-0.4); Eosinophils Percent Auto 2.1 % (0-4); Hematocrit 42.2 % (37.0-47.0); Imm Gran Abs Auto 0.05 X10*3/uL (0.00-0.03); Imm Gran Pct Auto 0.4 % (0.0-0.4); Lymphocytes Absolute Auto 3.2 X10*3/uL (1.2-4.9); Lymphocytes Percent Auto 28.1 % (20-40); Mean Corpuscular HGB Conc 33.2 g/dl (31.0-35.0); Mean Corpuscular Hemoglobin 27.8 pg (27.0-33.0); Mean Corpuscular Volume 83.9 fL (80.0-98.0); Mean Platelet Volume 11.4 fL (9.4-12.3); Monocytes Absolute Auto 0.9 X10*3/uL (0.1-1.2); Monocytes Percent Auto 7.9 % (2-11); Neutrophils Absolute Auto 6.9 x10*3/uL (2.0-8.3); Neutrophils Percent Auto 60.7 % (45-73); Platelet Count 351 X10*3/uL (160-400); Red Blood Count 5.03 X10*6/uL (4.20-5.50); Red Cell Distribution Width 12.7 % (11.0-16.0); White Blood Count 11.4 X10*3/uL (4.8-10.8)
[2022-07-21 16:02] LABS: Anion Gap 17 (12-20); Blood Urea Nitrogen 10 mg/dL (9-16); Calcium 9.7 mg/dL (8.4-10.2); Carbon Dioxide 24 mmol/L (22-29); Chloride 105 mmol/L (96-108); Estimated Glomerular Filt Rate > 60; Glucose Random 83 mg/dL (60-115); Magnesium 2.1 mg/dL (1.6-2.6); Potassium 4.5 mmol/L (3.3-5.1); Sodium 141 mmol/L (135-145)
[2022-07-21 16:18] LABS: Free T4 (Free Thyroxine) 1.11 ng/dL (0.71-1.85); Thyroid Stimulating Hormone 1.03 uIU/mL (0.32-4.0)
== END 2022-07-21 14:32 | disposition home or self-care (01) ==
LOC: HO.LAB 14:31
PROVIDERS: PCP Internal Medicine; Visit Provider Internal Medicine
DX: R00.2 Palpitations (principal)
CPT/HCPCS: 36415; 80048; 83735; 84439; 84443; 85025

== ENCOUNTER 2022-09-16 11:46 | Outpatient (REF) | payer MEDICAID, SELFPAY ==
[2022-09-16 13:27] LABS: MANUAL DIFF FLAG NO
[2022-09-16 13:28] LABS: Appearance Urine Turbid; Color Urine Dark Yellow; Glucose Urine UA Negative (Negative); Leukocyte Esterase Urine Moderate (2+) (Negative); Nitrite Urine Negative (Negative); PH 5.5 (5.0-9.0); Specific Gravity - Urine >= 1.030 (1.005-1.025); UMIC TRIGGER UACC YES; Urine Blood Negative (Negative); Urine Ketones Trace mg/dL (Negative); Urine Protein Trace mg/dL (Neg-Trace)
[2022-09-16 13:37] LABS: Basophils Absolute Auto 0.1 X10*3/uL (0.0-0.2); Basophils Percent Auto 0.9 % (0-2); Eosinophils Absolute Auto 0.3 X10*3/uL (0.0-0.4); Eosinophils Percent Auto 3.5 % (0-4); Hemoglobin 14.2 g/dl (12.0-16.0); Imm Gran Abs Auto 0.02 X10*3/uL (0.00-0.03); Imm Gran Pct Auto 0.2 % (0.0-0.4); Lymphocytes Absolute Auto 3.1 X10*3/uL (1.2-4.9); Lymphocytes Percent Auto 34.7 % (20-40); Mean Corpuscular Hemoglobin 27.8 pg (27.0-33.0); Mean Corpuscular Volume 84.1 fL (80.0-98.0); Mean Platelet Volume 12.2 fL (9.4-12.3); Monocytes Absolute Auto 0.6 X10*3/uL (0.1-1.2); Monocytes Percent Auto 6.7 % (2-11); Neutrophils Absolute Auto 4.8 x10*3/uL (2.0-8.3); Platelet Count 335 X10*3/uL (160-400); Red Blood Count 5.11 X10*6/uL (4.20-5.50); Red Cell Distribution Width 12.5 % (11.0-16.0); White Blood Count 8.8 X10*3/uL (4.8-10.8)
[2022-09-16 13:46] LABS: Bacteria Urine 4+ (None Seen); Hyaline Casts Urine 0-2 /LPF (0-2); UACC Culture Trigger YES; WBC Urine 21-50 /HPF (0-5)
[2022-09-16 14:30] LABS: Erythrocyte Sedimentation Rate 10 MM/HR (0-20)
[2022-09-16 14:35] LABS: HCG Quantitative < 2 mIU/mL
[2022-09-16 14:47] LABS: Alanine Aminotransferase 73 U/L (0-31); Albumin Level 4.3 g/dL (3.5-5.0); Alkaline Phosphatase 84 U/L (39-117); Anion Gap 11 (12-20); Aspartate Amino Transferase 45 U/L (5-31); Bilirubin Total 0.7 mg/dL (0.0-1.0); Blood Urea Nitrogen 10 mg/dL (9-16); C Reactive Protein 0.77 mg/dL (< or = 0.50); Calcium 9.8 mg/dL (8.4-10.2); Carbon Dioxide 27 mmol/L (22-29); Chloride 107 mmol/L (96-108); Estimated Glomerular Filt Rate > 60; Glucose Random 92 mg/dL (60-115); Lipase 27 U/L (8-78); Potassium 3.8 mmol/L (3.3-5.1); Sodium 141 mmol/L (135-145); Total Protein 7.7 g/dL (6.5-8.0)
== END 2022-09-16 11:47 | disposition home or self-care (01) ==
LOC: HO.10HDL 11:46
PROVIDERS: Visit Provider Internal Medicine
DX: R51.9 Headache, unspecified (principal); J45.909 Unspecified asthma, uncomplicated; R79.89 Other specified abnormal findings of blood chemistry
CPT/HCPCS: 36415; 80053; 81001; 83690; 84702; 85025; 85652; 86140; 87086

== ENCOUNTER 2023-02-04 09:19 | Outpatient (REF) | payer BC, SELFPAY | END 2023-02-04 09:20 | disposition home or self-care (01) | LOC: HO.LAB 09:19 | PROVIDERS: PCP Internal Medicine; Visit Provider Internal Medicine | DX: Z13.89 Encounter for screening for other disorder (principal) ==

== ENCOUNTER → 2024-11-08 16:10 | Outpatient (AMB) | payer BC, SELFPAY ==
[2024-11-08 16:20] VITALS: BP 128/74; PULSE 80; O2SAT 98; BMI 45.9
--- NOTE | 2024-11-08 16:20 | A.OFFVIS_ITS ---
Vital Signs 11/08/24 16:20 Height 5 ft Weight 106.594 kg BMI 45.9 BP 128/74 Blood Pressure Location Lt brachial Position Sitting Pulse 80 Pulse Source Pulse Oximeter Pulse Oximetry (%) 98 Oxygen Delivery Method Room Air Intake Visit Reasons: Physical Intake Note: Patient presents for a physical today. Allergies Seasonal Allergies Allergy (Mild, Verified 11/08/24 16:24) watery eyes, stuffy nose. Is last menstrual period known: Yes Last menstrual period: 10/16/24 HPI Comments Details: 24-year-old female with history of asthma, PCOS, anxiety, NAFLD presenting to the office today for annual physical exam and to establish care. She is a prior patient of Dr. Gray, last seen over 1 year ago. She currently lives with her . Trying for . Miscarriage in June. Works at an [employer]. No alcohol use. No cigarettes. No drugs including marijuana. Walks for an hour daily and feels she does follow a healthy diet. She has lost 12 lb but feels she has plateaued over the last few months and has been unable to continue with weight loss. Asthma-no recent exacerbation. Rare albuterol use Anxiety-stable off medication PCOS-on metformin for insulin resistance. However, has developed acanthosis nigricans as well as skin tags on the neck. menstrual cycle normal with the addition of metformin Concerns: None Started eating healthier due to NAFLD. Had lost 12 pounds, but has plateaued Health maintenance: Due for PAP, [facility] Reviewed past medical, family, surgical, social history ROS: General: No fevers, malaise, unintentional weight loss HEENT: No blurred vision, diplopia. No sore throat, nasal congestion, rhinorrhea, sinus pain, ear pain. No hearing loss Neck - no adenopathy Cardiovascular: No chest pain, palpitations, or leg edema Respiratory: No shortness of breath, wheezing, cough Breast: No pain, palpable lumps, nipple inversion GI: No dysphagia, odynophagia, globus sensation. No abdominal pain, nausea, vomiting, diarrhea, constipation, melena, hematochezia : No dysuria, hematuria, increased urinary frequency, decreased urinary output. 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 No AH/VH. No SI/HI Skin: No rashes or lesions EXAM: Constitutional - Awake and Alert, No apparent distress Eyes - PERRLA, EOMI. Anicteric Ears - external ears normal, canals clear, TMs intact and pearly sigala with good cone of light Nose- septum midline, nares clear, no sinus tenderness Mouth/throat- mucosa moist, tongue and uvula midline, no erythema/edema or tonsillar adenopathy. Neck-trachea midline, thyroid symmetric without palpable nodules, no adenopathy Cardiovascular - S1S2, RRR, No edema Respiratory - Normal lung expansion, Normal respiratory effort, No respiratory distress, CTA bilaterally Gastrointestinal - NT / ND; +BS; No rebound or guarding - No CVA tenderness Extremities - no calf tenderness bilaterally, no swelling Musculoskeletal - Normal inspection, normal ROM Skin - Warm/Dry, no concerning lesions. Acanthosis nigricans as well as small skin tags on the neck Neurological - Alert & oriented x3, CN II-XII in tact, 5/5 strength BUE and BLE, 2+ patellar reflexes, sensation intact Psychological - Appropriate affect PFSH Medical History (Updated 11/08/24 @ 16:50 by PRABHJOT Banerjee) Morbid obesity PCOS (polycystic ovarian syndrome) Anxiety Asthma Surgical History (Updated 11/08/24 @ 16:31 by Rita Rebolledo CMA) S/P cholecystectomy Family History (Updated 11/08/24 @ 16:54 by PRABHJOT Banerjee) Mother Diabetes Hypertension Brother Hypertension Ulcerative colitis Maternal Aunt Breast cancer Maternal Grandfather FH: prostate cancer Social History (Updated 11/08/24 @ 16:36 by Rita Rebolledo CMA) Household Members: Spouse Alcohol intake: never Patient Tobacco Use Status: Never used Tobacco Use of substances other than those prescribed or required for medical reasons: No Have you been hit, kicked, punched, or otherwise hurt by someone within the past year? If so, by whom?: No Do you feel safe in your current relationship?: Yes Is there a partner from a previous relationship who is making you feel unsafe now?: No Are you made to feel afraid or neglected: No [facility] Practices: Muslim Agree to transfusion: Yes Female Reproductive History Menstrual Date of last menstrual period: 10/16/24 Physical Exam Vital Signs: Last Vital Signs Pulse 80 11/08/24 16:20 BP 128/74 11/08/24 16:20 Pulse Ox 98 11/08/24 16:20 Oxygen Delivery Method Room Air 11/08/24 16:20 BMI result Body Mass Index 45.9 Assessment & Plan Assessment & Plan (1) Encounter for routine history and physical examination: Code(s): Z00.00 - Encounter for general adult medical examination without abnormal findings Plan: 24-year-old female presenting for annual physical exam. Plan as below (2) Asthma: Code(s): J45.909 - Unspecified asthma, uncomplicated Category: Medical Plan: Stable. Albuterol p.r.n. (3) Anxiety: Code(s): F41.9 - Anxiety disorder, unspecified Category: Medical Plan: Stable. Continue with healthy coping mechanisms (4) PCOS (polycystic ovarian syndrome): Code(s): E28.2 - Polycystic ovarian syndrome Category: Medical Plan: Showing evidence of increased insulin resistance. Check hemoglobin A1c. Continue metformin. Follow-up with OBGYN and consider reproductive endocrinology given desire for and recent miscarriage (5) Morbid obesity: Code(s): E66.01 - Morbid (severe) obesity due to excess calories Category: Medical Plan: Discussed weight loss tools including healthier diet tracking calories and macros with increased protein, fruits, vegetables and being mindful of refined sugars, saturated fats, highly processed foods as well as simple carbohydrates. Recommend adding resistant/weight training into her exercise routine Plan Routine screening labs as ordered below Given family history of breast cancer and relative less than age 45, referred for genetic testing Continue following for annual skin exams and use sun protection Annual eye exams Wear seat belt in car Recommend regular exercise and healthy diet Follow-up in 1 year for physical, sooner if needed Orders: Orders Hemoglobin A1c Today Z00.00 - Encounter for general adult medical examination without abnormal findings Complete Blood Count Auto Diff Today Z00.00 - Encounter for general adult medical examination without abnormal findings Lipid Panel Today Z00.00 - Encounter for general adult medical examination without abnormal findings Vitamin D 25-OH Total Today Z00.00 - Encounter for general adult medical examination without abnormal findings Basic Metabolic Panel Today Z00.00 - Encounter for general adult medical examination without abnormal findings Liver Panel Today Z00.00 - Encounter for general adult medical examination without abnormal findings TSH reflex Free T4 Today Z00.00 - Encounter for general adult medical examination without abnormal findings Referrals Medical Weight Management Referral E66.01 - Morbid (severe) obesity due to excess calories Genetics Referral Z80.3 - Family history of malignant neoplasm of breast Medications: Discontinued amoxicillin-pot clavulanate 875-125 mg (Augmentin) Discontinued Reason: Doctor's Order 1 tab PO BID 14 tabs 0RF Coding Level of Care Code New Pt Prev Care 18-39yr([id number] Diagnoses Encounter for routine history and physical examination Z00.00 Asthma J45.909 Anxiety F41.9 PCOS (polycystic ovarian syndrome) E28.2 Morbid obesity E66.01
== END ==
LOC: HO.HMCHD 16:11
PROVIDERS: PCP Internal Medicine; Visit Provider Physician Assistant
DX: Z00.00 Encounter for general adult medical examination without abnormal findings (principal); J45.909 Unspecified asthma, uncomplicated; F41.9 Anxiety disorder, unspecified; E28.2 Polycystic ovarian syndrome; E66.01 Morbid (severe) obesity due to excess calories

== ENCOUNTER → 2024-11-08 16:10 | Outpatient (BNVA) | payer BC, SELFPAY | PROVIDERS: PCP Internal Medicine; Visit Provider Physician Assistant | DX: Z00.00 Encounter for general adult medical examination without abnormal findings (principal) ==

== ENCOUNTER 2024-11-26 13:46 | Outpatient (AMB) | payer BC, SELFPAY ==
--- NOTE | 2024-11-26 13:50 | MHC.PC.OV ---
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 HPI HPI Comments History of Present Illness Details a&o x 3 24-year-old female with history of anxiety, asthma, PCOS, morbid obesity presenting to the office today accompanied by her for evaluation. She reports last night she developed a sore throat with painful swallowing. She is also had some ear pain, sinus pressure, runny nose. No cough, shortness of breath, chest pain. She also endorses shaking chills and sweats but did not check her temperature. She then woke up this morning with suprapubic pain and bilateral flank pain. She is had myalgias, lightheadedness and almost passed out in the shower. She reports feeling confused though is able to provide most history with assistance from her . She is had cloudy urine but denies any dysuria, hematuria, increased frequency or retention. Reports the pain as a 5/10 and is nonradiating. 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 She also states she has nausea and vomiting, vomited about 3 times and does state that the vomitus was brown but no bright red blood. She had 1 episode of diarrhea but no bright red blood per rectum. Despite taking Tylenol about 2 hours ago, still has fever of 104.5, heart rate 125. No hypotension. ROS: See HPI EXAM: Constitutional - Awake and Alert, No apparent distress Eyes - PERRL Ears-external ears normal, canals clear. Left TM bulging and erythematous. Right TM intact and pearly sigala No/sinus-maxillary sinus pressure to palpation Mouth/throat-2+ tonsillar edema with exudate and significant erythema. Neck: Tonsillar adenopathy noted Cardiovascular - S1S2, RRR, No edema Respiratory - Normal lung expansion, Normal respiratory effort, No respiratory distress, CTA bilaterally Extremities - no calf tenderness bilaterally, no swelling Skin - Warm/Dry Neurological - Alert & oriented x3 Psychological - Appropriate affect PFSH Medical History (Updated 11/26/24 @ 14:23 by PRABHJOT Banerjee) Morbid obesity PCOS (polycystic ovarian syndrome) Anxiety Asthma Surgical History (Updated 11/08/24 @ 16:31 by Rita Rebolledo CMA) S/P cholecystectomy Family History (Updated 11/08/24 @ 16:54 by PRABHJOT Banerjee) Mother Diabetes Hypertension Brother Hypertension Ulcerative colitis Maternal Aunt Breast cancer Maternal Grandfather FH: prostate cancer Social History (Updated 11/08/24 @ 16:36 by Rita Rebolledo CMA) Household Members: Spouse Alcohol intake: never Patient Tobacco Use Status: Never used Tobacco Agree to transfusion: Yes Physical exam (Primary Care) Vital Signs: Last Vital Signs Temp 104.5 F H 11/26/24 13:55 Pulse 125 H 11/26/24 13:55 Resp 16 11/26/24 13:55 BP 108/74 11/26/24 13:55 Pulse Ox 98 11/26/24 13:55 Oxygen Delivery Method Room Air 11/26/24 13:55 BMI result Body Mass Index 45.1 Tobacco/Smoking Status: Tobacco use Status Patient Tobacco Use Status Never used Tobacco 11/26/24 13:57 Coding Level of Care Code Est Pt Level 4 (90392) Diagnoses Sepsis A41.9 Strep pharyngitis J02.0 Assessment & Plan Assessment & Plan (1) Sepsis: Code(s): A41.9 - Sepsis, unspecified organism Category: Medical Plan: Meeting sepsis criteria with fever 104.5 and heart rate 125, suspect possible pyelonephritis based on clinical history and exam. She is advised to present to the ED for further evaluation and management. Expect call placed to triage provider. (2) Strep pharyngitis: Code(s): J02.0 - Streptococcal pharyngitis Category: Medical Plan: Based on [facility] criteria, likely has strep pharyngitis. Unfortunately no point of care testing available in the office. She is going to the ER who will likely tested for strep and manage antibiotics if appropriate. Plan Follow-up in the ER post hospital
[2024-11-26 13:55] VITALS: BP 108/74; PULSE 125; RESP 16; TEMP 40.3; O2SAT 98; BMI 45.1
== END 2024-11-26 14:43 | disposition home or self-care (01) ==
LOC: HO.HMCHD 13:47
PROVIDERS: PCP Internal Medicine; Visit Provider Physician Assistant
DX: A41.9 Sepsis, unspecified organism (principal); J02.0 Streptococcal pharyngitis

== ENCOUNTER 2024-11-26 14:31 | Emergency (ER) | payer BC, SELFPAY ==
--- NOTE | ~2024-11-26 | CT_ITS ---
CLINICAL HISTORY: RLQ pain. Appendicitis? CT ABDOMEN AND PELVIS WITH CONTRAST Comparison: None provided Findings: No consolidation or effusion. No acute abnormalities in the solid organs. No urolithiasis. Hepatic steatosis. Cholecystectomy. No AAA. No bowel obstruction, pneumoperitoneum, or pneumatosis. No ascites or organized fluid collection. No significant mesenteric or paracolic edema. The appendix is identified. No acute appendicitis. CT appearances of the uterus and ovaries unremarkable. Urinary bladder unremarkable. No acute fracture. IMPRESSION: 1. No acute appendicitis. 2. No obstructive or acute inflammatory changes in the gastrointestinal and genitourinary tracts. This document has been electronically signed by: Natividad Mo DO on 11/26/2024 18:35:43
[2024-11-26 14:35] VITALS: BP 120/64; PULSE 124; RESP 18; TEMP 38.8; O2SAT 97; BMI 43.6
--- NOTE | 2024-11-26 14:36 | ED.GENADULT ---
HPI - General Adult General Chief complaint: Urogenital-Female Stated complaint: High fever, sent from Dr Time Seen by Provider: 11/26/24 14:58 Source: patient Mode of arrival: ambulatory Limitations: no limitations History of Present Illness ED Provider: Dane Florence HPI narrative: 24 yold female with pmh of PCOS presents to the ED for fever, dysuria, lower abdominal suprapubic pain, fever, chills, and dark urine. Patient states symptoms occurred since yesterday. Patient states referred pain to flank Related Data Home Medications ?Medication ?Instructions ?Recorded ?Confirmed albuterol 90 mcg/actuation aerosol mcg inhalation 11/08/24 inhaler fluticasone propionate 50 1 spray intranasal DAILY 11/08/24 mcg/actuation nasal spray,suspension (Flonase Allergy Relief) metformin 500 mg tablet,extended 500 mg PO DAILY 11/08/24 release 24 hr Previous Rx's ?Medication ?Instructions ?Recorded amoxicillin 875 mg-potassium 1 tab PO Q12H #14 tabs 11/26/24 clavulanate 125 mg tablet Allergies Allergy/AdvReac Type Severity Reaction Status Date / Time Seasonal Allergies Allergy Mild watery Verified 11/26/24 14:37 eyes, stuffy nose. ibuprofen (From Motrin) Allergy Palpitation Verified 11/26/24 14:38 s Review of Systems Review of Systems: Lower abdominal pain, fever, cloudy urine Yes all other systems are reviewed and are negative PMF Past Medical History Medical History (Updated 11/26/24 @ 19:58 by Ruy Cruz) Morbid obesity PCOS (polycystic ovarian syndrome) Anxiety Asthma Surgical History (Updated 11/08/24 @ 16:31 by Rita Rebolledo CMA) S/P cholecystectomy Family History Family History (Updated 11/08/24 @ 16:54 by PRABHJOT Banerjee) Mother Diabetes Hypertension Brother Hypertension Ulcerative colitis Maternal Aunt Breast cancer Maternal Grandfather FH: prostate cancer Social History Social History (Updated 11/08/24 @ 16:36 by Rita Rebolledo CMA) Household Members: Spouse Alcohol intake: never Patient Tobacco Use Status: Never used Tobacco Agree to transfusion: Yes Physical Exam ED Vital Signs: Vital Signs - 24 hr 11/26/24 14:35 11/26/24 17:45 11/26/24 18:35 Temperature 102 F H Pulse Rate 124 H 91 95 Respiratory Rate 18 22 H 16 Blood Pressure 120/64 93/50 L 94/53 L Pulse Oximetry 97 97 Oxygen Delivery Method Room Air Room Air Oxygen Flow Rate 98 11/26/24 18:37 11/26/24 19:16 11/26/24 20:15 Temperature 97.8 F 98.5 F 98.5 F Pulse Rate 94 94 Respiratory Rate 17 17 Blood Pressure 104/57 L 104/63 104/63 Pulse Oximetry 98 98 Oxygen Delivery Method Room Air Room Air Oxygen Flow Rate BMI result Body Mass Index 43.6 Const General: cooperative, healthy appearing, comfortable, no acute distress, well developed, alert, awake and Physically active Orientation/consciousness: patient oriented x3 [facility] Head: Yes normal to inspection, Yes No palpable skull fracture present, Yes normocephalic and Yes atraumatic Throat: Yes posterior oropharynx normal, Yes uvula midline and Yes abnormal tonsil (positive for bilateral exudates. negative for signs of Peritonsillar absces) Eyes General: appearance normal, both eyes and all related structures Direct Ophthalmoscopy: normal light reflex, no photophobia, no papilledema, fundi normal bilaterally and anterior chamber normal Neck Neck: Yes normal visual inspection, Yes full ROM, Yes no lymphadenopathy, Yes no meningeal signs, Yes trachea midline, Yes supple, No anterior neck swelling and No tender Chest Chest palpation & inspection: normal inspection of the chest and normal palpation of entire chest wall Resp Effort & Inspection: normal respiratory effort and able to speak in complete sentences Auscultation: clear to auscultation bilaterally Cardio Jugular venous distension: no JVD GI Inspection: Yes normal to inspection Palpation (GI): Soft to palpation, not firm, nontender, no guarding and not rigid General: Yes no CVA tenderness Back/Spine/Pelvis Back: no CVA tenderness and No back tenderness Skin General skin exam: no rashes or lesions noted, elasticity normal and turgor normal Neuro General: patient oriented x3, gait normal, tone normal, moves all extremities, Normal light touch and pain sensation, no meningeal signs, no focal motor deficits, CN's II-XI intact bilaterally and normal sensation to monofilament Extrem General: Yes normal to inspection, Yes full ROM and Yes capillary refill normal Psych Appearance: grossly normal, well kempt and not disheveled Course Course Course Narrative: This is a Rapid Medical Examination (RME) performed by Corbin Jarvis PA-C in triage. Full HPI, ROS, assessment and treatment plan per primary provider in the Main ED. Hx: 24 yo F here from PCP office for eval of dark cloudy urine and b/l flank pain since yesterday. also endorses sore throat. fevers unresponsive to tylenol, last took around noon today. states she cannot take NSAIDs as they give her chest pain/palpitations. PE/vitals: febrile to 102F - unable to give motrin/tylenol at this time. Plan: labs, strep/viral swabs, UA Reevaluation(s) Reevaluation #1: Patient received in sign-out at change of shift pending CT scan of the abdomen pelvis to evaluate for acute appendicitis. The CT scan does not show any acute findings. The abdominal pain is likely related to her strep pharyngitis diagnosis. Blood pressure has improved. We will treat with Augmentin b.i.d. x1 week Time: 19:56 Medications Administered Discontinued Medications Generic Name Dose Route Start Last Admin Trade Name Rayshawn PRN Reason Stop Dose Admin Sodium Chloride 1,000 mls @ 999 mls/hr 11/26/24 14:58 11/26/24 16:40 Ns IV 11/26/24 15:58 Infused .Q1H1M STA Infusion Acetaminophen 1,000 mg in 100 mls @ 400 mls/hr 11/26/24 15:12 11/26/24 16:05 Ofirmev IV 11/26/24 15:26 Infused ONCE ONE Infusion Sodium Chloride 1,000 mls @ 999 mls/hr 11/26/24 15:33 11/26/24 17:08 Ns IV 11/26/24 16:33 Infused .Q1H1M STA Infusion Piperacillin Sod/Tazobactam 50 mls @ 100 mls/hr 11/26/24 16:15 11/26/24 17:10 Sod 3.375 gm/ Sodium Chloride IV 11/26/24 16:44 Infused ONCE ONE Infusion Sodium Chloride 1,000 mls @ 999 mls/hr 11/26/24 17:44 11/26/24 20:14 Ns IV 11/26/24 18:44 Infused .Q1H1M STA Infusion Iohexol 100 ml 11/26/24 17:03 11/26/24 17:03 Iohexol 350 Mg/Ml 100 Ml Infus..Btl IV 11/26/24 17:04 85 ml ONCE ONE Administration Morphine Sulfate 4 mg 11/26/24 16:09 11/26/24 16:31 Morphine Sulfate 4 Mg/Ml Cartridge IVPUSH 11/26/24 16:10 4 mg ONCE ONE Administration Protocol Ondansetron HCl 4 mg 11/26/24 18:08 11/26/24 18:24 Ondansetron Hcl 4 Mg/2 Ml Vial IVPUSH 11/26/24 18:09 4 mg ONCE ONE Administration Medical Decision Making Medical Decision Making [facility] Narrative: 24-year-old female presents to ED for lower abdominal pain suprapubic pain with cloudy urine, dysuria, and flank pain with fever. Fever hives positive 4. Patient was sent from the clinic. Positive CVA of the flank and lower abdominal tenderness on palpation. Labs UA lipase blood culture fluids ordered. Oral exam negative for signs of peritonsillar abscess, retropharygneal abscess, or gumaro angina. Signed out to PRABHJOT Conner Differential Diagnosis Differential Diagnoses: The differential diagnosis associated with the presentation includes (appendcitis, UTI, cholecytitis) Admission/Observation Consideration of admission/observation: Escalation of care including admission/observation considered Lab Data [facility] Lab Attestation statement: I reviewed the patient's lab results. 11/26/24 15:31 11/26/24 15:31 Labs: Lab Results 11/26/24 11/26/24 Range/Units 15:31 15:49 WBC 21.6 H (4.8-10.8) X10*3/uL RBC 5.10 (4.20-5.50) X10*6/uL Hgb 14.8 (12.0-16.0) g/dl Hct 41.5 (37.0-47.0) % MCV 81.4 (80.0-98.0) fL MCH 29.0 (27.0-33.0) pg MCHC 35.7 H (31.0-35.0) g/dl RDW 12.8 (11.0-16.0) % Plt Count 316 (160-400) X10*3/uL MPV 11.0 (9.4-12.3) fL Immature Gran % (Auto) 0.5 H (0.0-0.4) % Neut % (Auto) 86.4 H (45-73) % Lymph % (Auto) 6.8 L (20-40) % [place] % (Auto) 5.6 (2-11) % Eos % (Auto) 0.1 (0-4) % Baso % (Auto) 0.6 (0-2) % Lymph # (Auto) 1.5 (1.2-4.9) X10*3/uL [place] # (Auto) 1.2 (0.1-1.2) X10*3/uL Eos # (Auto) 0.0 (0.0-0.4) X10*3/uL Baso # (Auto) 0.1 (0.0-0.2) X10*3/uL Abs Immat Gran (auto) 0.10 H (0.00-0.03) X10*3/uL Absolute Neuts (auto) 18.7 H (2.0-8.3) x10*3/uL Absolute Nucleated RBC 0.000 (0.0-0.012) X10*3/uL Nucleated RBC % (auto) 0.0 (0.0-0.2) /100WBC Sodium 140 (135-145) mmol/L Potassium 3.4 (3.3-5.1) mmol/L Chloride 107 (96-108) mmol/L Carbon Dioxide 23 (22-29) mmol/L Anion Gap 13 (12-20) BUN 7 L (9-16) mg/dL Creatinine 0.72 (0.5-1.4) mg/dL Estim Creat Clear Calc 131.9 Estimated GFR > 60 Random Glucose 100 (60-115) mg/dL Lactic Acid 1.2 (0.5-2.0) mmol/L Calcium 9.5 (8.4-10.2) mg/dL Magnesium 2.0 (1.6-2.6) mg/dL Total Bilirubin 1.0 (0.0-1.0) mg/dL AST 35 H (5-31) U/L ALT 82 H (0-31) U/L Alkaline Phosphatase 91 (39-117) U/L Total Protein 8.2 H (6.5-8.0) g/dL Albumin 4.5 (3.5-5.0) g/dL Lipase 26 (8-78) U/L Beta HCG, Quant < 2 mIU/mL Urine Color Yellow Urine Appearance Clear Urine pH 7.0 (5.0-9.0) Ur Specific [place] 1.015 (1.005-1.025) Urine Protein Negative (Neg-Trace) mg/dL Urine Glucose (UA) Negative (Negative) mg/dL Urine Ketones Negative (Negative) mg/dL Urine Blood Negative (Negative) Urine Nitrite Negative (Negative) Ur Leukocyte Esterase Negative (Negative) Urine Test NEGATIVE (NEGATIVE) COVID-19 (ELBA) Negative (Negative) COVID-19 Clin Com See Note Influenza Type A (JODI) Negative (Negative) Influenza Type B (JODI) Negative (Negative) Influenza A & B Note See Note S. pyogenes GrpA JODI Positive A (Negative) Independent Interpretation I performed an independent interpretation of an: CT Scan Radiology Impression Discussion of test interpretation with radiology: I have reviewed the radiologist's reading. Radiologist Impression: Findings: No consolidation or effusion. No acute abnormalities in the solid organs. No urolithiasis. Hepatic steatosis. Cholecystectomy. No AAA. No bowel obstruction, pneumoperitoneum, or pneumatosis. No ascites or organized fluid collection. No significant mesenteric or paracolic edema. The appendix is identified. No acute appendicitis. CT appearances of the uterus and ovaries unremarkable. Urinary bladder unremarkable. No acute fracture. IMPRESSION: 1. No acute appendicitis. 2. No obstructive or acute inflammatory changes in the gastrointestinal and genitourinary tracts. This document has been electronically signed by: Natividad Mo DO on 11/26/2024 18:35:43 Discharge Plan Discharge Clinical Impression: Acute streptococcal pharyngitis Patient Disposition: Home, Self-Care Instructions: Strep Throat (ED) Additional Instructions: Take Augmentin twice daily for 1 week to treat strep pharyngitis. Use Tylenol every 6 hours as needed for fevers and pain. Drink lots of fluids. Follow up with your primary doctor, return for new or worsening symptoms Prescriptions: New amoxicillin-pot clavulanate 875-125 mg tablet 1 tab PO Q12H Qty: 14 0RF No Action metformin 500 mg tablet extended release 24 hr 500 mg PO DAILY albuterol 90 mcg/actuation aerosol inhalation fluticasone propionate [Flonase Allergy Relief] 50 mcg/actuation spray,suspension 1 spray intranasal DAILY Rx Instructions: administer into each nostril Interventions: ED Discharge Assessment Last Done: 11/26/24 20:15 Discharge Date/Time: 11/26/24 20:18 Print Language: Wolof
[2024-11-26 15:39] LABS: MANUAL DIFF FLAG NO
[2024-11-26 15:40] LABS: Hematocrit 41.5 % (37.0-47.0); Hemoglobin 14.8 g/dl (12.0-16.0); Imm Gran Abs Auto 0.10 X10*3/uL (0.00-0.03); Imm Gran Pct Auto 0.5 % (0.0-0.4); Lymphocytes Absolute Auto 1.5 X10*3/uL (1.2-4.9); Mean Corpuscular HGB Conc 35.7 g/dl (31.0-35.0); Mean Corpuscular Hemoglobin 29.0 pg (27.0-33.0); Mean Corpuscular Volume 81.4 fL (80.0-98.0); NRBC Abs Auto 0.000 X10*3/uL (0.0-0.012); NRBC Pct Auto 0.0 /100WBC (0.0-0.2); Platelet Count 316 X10*3/uL (160-400); Red Blood Count 5.10 X10*6/uL (4.20-5.50); White Blood Count 21.6 X10*3/uL (4.8-10.8)
[2024-11-26 15:49] LABS: IDNOW Serial# 08D9AD1C; Strep A Nucleic Acid Positive (Negative)
[2024-11-26 15:58] LABS: COVID-19 Test Negative (Negative); IDNOW Serial# 55D5AD1C
[2024-11-26 15:59] LABS: IDNOW Serial# 58CA691E; Influenza B2 Negative (Negative)
[2024-11-26 16:03] LABS: Appearance Urine Clear; Glucose Urine UA Negative (Negative); PH 7.0 (5.0-9.0); Specific Gravity - Urine 1.015 (1.005-1.025)
[2024-11-26 16:06] LABS: UPreg QC Valid YES
[2024-11-26 16:07] LABS: Alanine Aminotransferase 82 U/L (0-31); Albumin Level 4.5 g/dL (3.5-5.0); Alkaline Phosphatase 91 U/L (39-117); Anion Gap 13 (12-20); Aspartate Amino Transferase 35 U/L (5-31); Blood Urea Nitrogen 7 mg/dL (9-16); Calcium 9.5 mg/dL (8.4-10.2); Carbon Dioxide 23 mmol/L (22-29); Chloride 107 mmol/L (96-108); Creatinine Clr Calc Pharmacy 131.9; Estimated Glomerular Filt Rate > 60; Lipase 26 U/L (8-78); Magnesium 2.0 mg/dL (1.6-2.6); Potassium 3.4 mmol/L (3.3-5.1); Sodium 140 mmol/L (135-145); Total Protein 8.2 g/dL (6.5-8.0)
--- NOTE | 2024-11-26 16:58 | PC.NURSE ---
Pt to CT
--- NOTE | 2024-11-26 17:02 | PC.NURSE ---
Pt returned from CT
[2024-11-26] MEDS: iohexoL 350 MG/ML 100 ML INFUS..BTL IV (17:03)
[2024-11-26 17:45] VITALS: BP 93/50; PULSE 91; RESP 22; O2SAT 97
[2024-11-26 18:35] VITALS: BP 94/53; PULSE 95; RESP 16
[2024-11-26 18:37] VITALS: BP 104/57; TEMP 36.6
[2024-11-26 19:16] VITALS: BP 104/63; PULSE 94; RESP 17; TEMP 36.9; O2SAT 98
[2024-11-26 20:15] VITALS: BP 104/63; PULSE 94; RESP 17; TEMP 36.9; O2SAT 98
== END 2024-11-26 20:18 | disposition home or self-care (01) ==
PROVIDERS: Physician Assistant; Physician Assistant Medical; Emergency Provider Emergency Medicine; PCP Physician Assistant
DX: J02.0 Streptococcal pharyngitis (principal); R10.2 Pelvic and perineal pain; R50.9 Fever, unspecified; R30.0 Dysuria; Z79.899 Other long term (current) drug therapy; Z11.52 Encounter for screening for COVID-19
CPT/HCPCS: 36415; 74177; 80053; 81003; 81025; 83605; 83690; 83735; 84702; 85025; 87040; 87502; 87635; 87651; 96361; 96365; 96367; 96375; 99284; 99285; J0131; J2270; J2405; J2543; Q9967

== ENCOUNTER → 2024-11-26 16:15 | Outpatient (BNV) | payer BC, SELFPAY | PROVIDERS: Emergency Provider Emergency Medicine; PCP Physician Assistant; Visit Provider Radiology Diagnostic Radiology | DX: R10.31 Right lower quadrant pain (principal) | CPT/HCPCS: 74177 ==

== ENCOUNTER 2024-11-29 10:51 | Outpatient (AMB) | payer BC, SELFPAY ==
[2024-11-29 10:56] VITALS: BP 118/78; PULSE 67; RESP 16; TEMP 36.9; O2SAT 99; BMI 45.1
--- NOTE | 2024-11-29 10:56 | AM.OFFWIN_ITS ---
Intake Vital Signs 11/29/24 10:56 Height 5 ft Weight 231 lb BMI 45.1 BP 118/78 Blood Pressure Location Lt brachial Position Sitting Respiration 16 Pulse 67 Pulse Source Pulse Oximeter Temp 98.5 F Temp Source Oral Pulse Oximetry (%) 99 Oxygen Delivery Method Room Air Intake Visit Reasons: EP Allergic reaction to Amoxicillin Patient Tobacco Use Status: Never used Tobacco Ap Processor Required: No Accompanied by: Self / Same As Patient Allergies Seasonal Allergies Allergy (Mild, Verified 11/29/24 10:58) watery eyes, stuffy nose. ibuprofen (From Motrin) Allergy (Verified 11/29/24 10:58) Palpitations Medication List - Last Reconciled 11/29/24 by Reji Clark MD albuterol 90 mcg/actuation mcg inhalation fluticasone propionate 50 mcg/actuation (Flonase Allergy Relief) 1 spray intranasal DAILY metformin ER 500 mg PO DAILY HPI EP Allergic reaction to Amoxicillin HPI Details History of Present Illness The patient is a 24 year old female presenting with a possible allergic reaction to amoxicillin. Possible allergic reaction to amoxicillin: - The patient reports being prescribed a moxicillin for strep throat after visiting the emergency room on Monday. - Consumed the medication for two days p rior to the visit. - Reports symptoms of swelling on the ro of of her mouth and bleeding when brushing teeth. - Experienced mild itching sensation in the mouth. - No report of generalized rash, nausea, vomiting, cramping, or diarrhea. - Previous episodes of cold sores due to viral presence exacerbated by stress, not related to the allergic reaction. - No history of allergy to other antibio tics. Problem List - Possible allergic reaction to amoxicil carie. - Strep throat. Patient Instructions - Stop taking amoxicillin. - Use azithromycin as the new prescribed antibiotic. - Rinse mouth with warm water mixed with a teaspoon of salt until symptoms improve. Review of Systems - General: No fever no chills - Neurological: No headaches no dizziness - Ear nose throat: no hearing difficulty no ear pain - Cardiovascular: No syncope, no chest pain, no palpitations - Gastrointestinal: No nausea vomiting or diarrhea Physical Exam General: No acute distress HEENT: cold sore present lower lip, no lesions noticed in mouth , no bleeding no swelling Neck: Supple Respiratory system: Able to talk in full sentences, no audible wheeze Gastrointestinal: No pain Extremities: No new findings [employer]ER [employer]: Alert awake oriented x3 motor intact Skin: Normal turgor PFSH Medical History Morbid obesity PCOS (polycystic ovarian syndrome) Anxiety Asthma Surgical History S/P cholecystectomy Family History Mother Diabetes Hypertension Brother Hypertension Ulcerative colitis Maternal Aunt Breast cancer Maternal Grandfather FH: prostate cancer Social History Household Members: Spouse Alcohol intake: never Patient Tobacco Use Status: Never used Tobacco Agree to transfusion: Yes Physical Exam Vital Signs: Last Vital Signs Temp 98.5 F 11/29/24 10:56 Pulse 67 11/29/24 10:56 Resp 16 11/29/24 10:56 BP 118/78 11/29/24 10:56 Pulse Ox 99 11/29/24 10:56 Oxygen Delivery Method Room Air 11/29/24 10:56 BMI result Body Mass Index 45.1 Assessment & Plan Assessment & Plan (1) Medication reaction: Code(s): T50.905A - Adverse effect of unspecified drugs, medicaments and biological substances, initial encounter Qualifiers: Encounter type: initial encounter Qualified Code(s): T50.905A - Adverse effect of unspecified drugs, medicaments and biological substances, initial encounter (2) Streptococcal infection: Code(s): A49.1 - Streptococcal infection, unspecified site (3) Cold sore: Code(s): B00.1 - Herpesviral vesicular dermatitis Plan History of Present Illness The patient is a 24 year old female presenting with a possible allergic reaction to amoxicillin. Possible allergic reaction to amoxicillin: - The patient reports being prescribed amoxicillin for strep throat after visiting the emergency room on Monday. - Consumed the medication for two days prior to the visit. - Reports symptoms of swelling on the roof of her mouth and bleeding when brushing teeth. - Experienced mild itching sensation in the mouth. - No report of generalized rash, nausea, vomiting, cramping, or diarrhea. - Previous episodes of cold sores due to viral presence exacerbated by stress, not related to the allergic reaction. - No history of allergy to other antibiotics. Problem List - Possible allergic reaction to amoxicillin. - Strep throat. Patient Instructions - Stop taking amoxicillin. - Use azithromycin as the new prescribed antibiotic. - Rinse mouth with warm water mixed with a teaspoon of salt until symptoms improve. Medications: New azithromycin Take 2 tablets today then 1 daily 250 mg PO ONCE 12 tabs 0RF 12 days J06.9 - Acute upper respiratory infection, unspecified Coding Level of Care Code Est Pt Level 3 (99047) Diagnoses Adverse effect of drug, initial encounter T50.905A Encounter type: initial encounter Streptococcal infection A49.1 Cold sore B00.1
== END 2024-11-29 11:10 | disposition home or self-care (01) ==
PROVIDERS: PCP Internal Medicine; Visit Provider Internal Medicine
DX: T50.905A Adverse effect of unspecified drugs, medicaments and biological substances, initial encounter (principal); A49.1 Streptococcal infection, unspecified site; B00.1 Herpesviral vesicular dermatitis

== ENCOUNTER 2024-12-02 11:37 | Emergency (ER) | payer BC, SELFPAY ==
[2024-12-02 11:55] VITALS: BP 133/78; PULSE 62; RESP 16; TEMP 36.8; O2SAT 99; BMI 40.6
--- NOTE | 2024-12-02 11:55 | ED.GENADULT ---
HPI - General Adult General Chief complaint: Upper Respiratory Symptoms Stated complaint: meds not working for strep? Time Seen by Provider: 12/02/24 12:39 Source: patient Mode of arrival: ambulatory Limitations: no limitations History of Present Illness ED Provider: DR. Perry HPI narrative: 24-year-old female diagnosed with strep pharyngitis on 11/26/2024 patient was sent home on Augmentin, after 1 day of being on Augmentin patient had swelling at the roof of her mouth, otherwise no rash, no itching, no difficulty breathing, no throat swelling, no change of voice patient went to a walk-in clinic and they switch amoxicillin to azithromycin patient reported improvement when she was not amoxicillin but worsening of her symptoms after she was started on azithromycin patient is still complaining of sore throat, subjective fever, patient received amoxicillin Throughout her childhood several times with no allergic reaction. Will start the patient on amoxicillin with close monitoring for allergic reaction. Related Data Home Medications ?Medication ?Instructions ?Recorded ?Confirmed albuterol 90 mcg/actuation aerosol mcg inhalation 11/08/24 11/29/24 inhaler fluticasone propionate 50 1 spray intranasal DAILY 11/08/24 11/29/24 mcg/actuation nasal spray,suspension (Flonase Allergy Relief) metformin 500 mg tablet,extended 500 mg PO DAILY 11/08/24 11/29/24 release 24 hr Previous Rx's ?Medication ?Instructions ?Recorded azithromycin 250 mg tablet 250 mg PO ONCE 12 days #12 tabs 11/29/24 clindamycin HCl 300 mg capsule 300 mg PO TID #20 caps 12/02/24 (Cleocin HCl) Allergies Allergy/AdvReac Type Severity Reaction Status Date / Time Seasonal Allergies Allergy Mild watery Verified 12/02/24 11:58 eyes, stuffy nose. amoxicillin Allergy Swelling Verified 12/02/24 11:58 ibuprofen (From Motrin) Allergy Palpitation Verified 12/02/24 11:58 s Review of Systems Review of Systems: all other systems are reviewed and are negative Constitutional: Reports as per HPI and Reports no additional constitutional complaints Eyes: Reports as per HPI and Reports no additional eye complaints Reports system reviewed and no additional complaints, except as documented Cardiovascular: Reports as per HPI and Reports no additional cardiovascular complaints Respiratory: Reports as per HPI and Reports no additional respiratory complaints Gastrointestinal: Reports as per HPI and Reports no additional gastrointestinal complaints Genitourinary: Reports no additional female genitourinary complaints Musculoskeletal: Reports no additional musculoskeletal complaints Skin/Breast: Reports system reviewed and no additional complaints, except as docu Psychiatric: Reports no additional psychiatric complaints Endocrine: Reports no additional endocrine complaints Hematologic/Lymphatic: Reports no additional hematologic/lymphatic complaints Allergic/Immunologic: Reports no additional allergic/immunologic complaints Reports system reviewed and no additional complaints, except as documented and Reports Abnormal speech present FOR[facility]LY [facility], [facility] Past Medical History Medical History Morbid obesity PCOS (polycystic ovarian syndrome) Anxiety Asthma Surgical History S/P cholecystectomy Family History Family History Mother Diabetes Hypertension Brother Hypertension Ulcerative colitis Maternal Aunt Breast cancer Maternal Grandfather FH: prostate cancer Social History Social History Household Members: Spouse Alcohol intake: never Patient Tobacco Use Status: Never used Tobacco Agree to transfusion: Yes Advance Directives: No Advance Directives Information Provided: Yes Do you have a plan to hurt others: No Plan Physical Exam ED Vital Signs: Vital Signs - 24 hr 12/02/24 11:55 12/02/24 13:38 12/02/24 14:53 Temperature 98.2 F Pulse Rate 62 67 85 Respiratory Rate 16 18 18 Blood Pressure 133/78 117/56 L 134/75 Pulse Oximetry 99 99 100 Oxygen Delivery Method Room Air Room Air Room Air BMI result Body Mass Index 40.6 Vital signs have been reviewed and appear to be correct. Blood pressure elevated. Heart rate normal. Respiratory rate normal. Temperature normal. Oxygen saturation normal. Appearance: Alert. Oriented X3. No acute distress. Head: Normal external exam. Normocephalic. Atraumatic. No Gonzales signs noted. No raccoon eyes noted Eyes: PERRLA. EOMI. Conjunctiva and sclera normal. Eyelids normal. ENT: TM's Normal. Pharynx normal. Uvula midline. Moist mucous membranes. No trismus noted. No drooling noted. No muffled voice noted. Neck: Normal inspection. Neck supple. FROM. No adenopathy. Thyroid Normal. No meningeal signs. No neck mass noted. CVS: Normal heart rate and rhythm. Heart sound normal. No murmurs noted. Pulses normal throughout. Respiratory: No respiratory distress. Painless inspiration. Breath sounds normal. No wheezes/rales/rhonchi noted. Chest nontender. No accessory muscle usage noted or decreased air movement noted. Abdomen: Soft and nontender. Bowel sounds normal in all 4 quadrants. No distention noted. No organomegaly noted. No visible injury noted. Back: No CVA tenderness. Full range of motion noted. Skin: Skin warm and dry. Normal skin color. Normal skin turgor. No rashes/lesions/lacerations noted. Extremities: No lower extremity edema. Extremities exhibit normal range of motion. Extremities nontender. Neuro: Oriented X 3. Cranial nerve exam: II-XII are grossly intact No motor deficit. No sensory deficit. Reflexes normal. Course Course Course Narrative: Rapid medical examination performed in triage by Meseret Nolan PA-C. Patient is a 24 year old assigned female at presenting to the emergency department with continued sore throat and fever. Patient states she was diagnosed with strep pharyngitis on 11/26/2024 and prescribed Augmentin but after 1 day of taking it her mouth was swollowen so they switched her to Azithromycin but she continues to have fevers + sore throat. Detailed physical exam and review of systems are deferred to the project controls scheduler. Labs and swabs ordered. Patient placed back in the waiting room pending room availability and results. Reevaluation(s) Reevaluation #1: patient received 1 dose of amoxicillin in the emergency department feels the like the pill is stuck in her throat, patient was able to drink water without regurgitation, close exam to the patient no throat swelling, no lip swelling, no itching, no rash, hemodynamically stable mother and family at the bedside insists to choose something else other than amoxicillin. Leukocytosis secondary to strep pharyngitis. Will start the patient on clindamycin for 1 week. Time: 15:12 Medications Administered Discontinued Medications Generic Name Dose Route Start Last Admin Trade Name Freq PRN Reason Stop Dose Admin Amoxicillin/Clavulanate Potassium 875 mg 12/02/24 12:51 12/02/24 13:40 Amoxicillin/Potassium Clav 875 Mg Tablet PO 12/02/24 12:52 875 mg ONCE ONE Administration Clindamycin HCl 300 mg 12/02/24 15:06 12/02/24 15:16 Clindamycin Hcl 300 Mg Capsule PO 12/02/24 15:07 300 mg ONCE ONE Administration Ondansetron HCl 4 mg 12/02/24 15:10 12/02/24 15:12 Ondansetron Odt 4 Mg Tab.Edwin JHAVERIU 12/02/24 15:11 4 mg ONCE ONE Administration Medical Decision Making Differential Diagnosis Differential Diagnoses: The differential diagnosis associated with the presentation includes ( Strep pharyngitis, [employer].) Admission/Observation Consideration of admission/observation: Escalation of care including admission/observation considered Lab Data MDM Lab Attestation statement: I reviewed the patient's lab results. 12/02/24 12:16 12/02/24 12:16 Labs: Lab Results 12/02/24 Range/Units 12:16 WBC 18.8 H (4.8-10.8) X10*3/uL RBC 5.08 (4.20-5.50) X10*6/uL Hgb 14.5 (12.0-16.0) g/dl Hct 42.5 (37.0-47.0) % MCV 83.7 (80.0-98.0) fL MCH 28.5 (27.0-33.0) pg MCHC 34.1 (31.0-35.0) g/dl RDW 13.2 (11.0-16.0) % Plt Count 334 (160-400) X10*3/uL MPV 10.9 (9.4-12.3) fL Immature Gran % (Auto) 0.5 H (0.0-0.4) % Neut % (Auto) 76.7 H (45-73) % Lymph % (Auto) 15.3 L (20-40) % Sanders % (Auto) 5.9 (2-11) % Eos % (Auto) 1.1 (0-4) % Baso % (Auto) 0.5 (0-2) % Lymph # (Auto) 2.9 (1.2-4.9) X10*3/uL Sanders # (Auto) 1.1 (0.1-1.2) X10*3/uL Eos # (Auto) 0.2 (0.0-0.4) X10*3/uL Baso # (Auto) 0.1 (0.0-0.2) X10*3/uL Abs Immat Gran (auto) 0.09 H (0.00-0.03) X10*3/uL Absolute Neuts (auto) 14.4 H (2.0-8.3) x10*3/uL Absolute Nucleated RBC 0.000 (0.0-0.012) X10*3/uL Nucleated RBC % (auto) 0.0 (0.0-0.2) /100WBC ESR 20 (0-20) MM/HR Sodium 142 (135-145) mmol/L Potassium 3.7 (3.3-5.1) mmol/L Chloride 110 H (96-108) mmol/L Carbon Dioxide 25 (22-29) mmol/L Anion Gap 11 L (12-20) BUN 9 (9-16) mg/dL Creatinine 0.65 (0.5-1.4) mg/dL Estim Creat Clear Calc 151.3 Estimated GFR > 60 Random Glucose 84 (60-115) mg/dL Calcium 9.4 (8.4-10.2) mg/dL Total Bilirubin 0.8 (0.0-1.0) mg/dL AST 35 H (5-31) U/L ALT 67 H (0-31) U/L Alkaline Phosphatase 70 (39-117) U/L C-Reactive Protein 1.76 H (< or = 0.50) mg/dL Total Protein 7.9 (6.5-8.0) g/dL Albumin 4.5 (3.5-5.0) g/dL COVID-19 (ELBA) Negative (Negative) COVID-19 Clin Com See Note Influenza Type A (JODI) Negative (Negative) Influenza Type B (JODI) Negative (Negative) Influenza A & B Note See Note S. pyogenes GrpA JODI Positive A (Negative) Discharge Plan Discharge Clinical Impression: Acute streptococcal pharyngitis Patient Disposition: Home, Self-Care Instructions: Pharyngitis (ED) Prescriptions: New clindamycin HCl [Cleocin HCl] 300 mg capsule 300 mg PO TID Qty: 20 0RF No Action metformin 500 mg tablet extended release 24 hr 500 mg PO DAILY albuterol 90 mcg/actuation aerosol inhalation fluticasone propionate [Flonase Allergy Relief] 50 mcg/actuation spray,suspension 1 spray intranasal DAILY Rx Instructions: administer into each nostril azithromycin 250 mg tablet 250 mg PO ONCE 12 Days Qty: 12 0RF Rx Instructions: Take 2 tablets today then 1 daily Print Language: German
[2024-12-02 12:20] LABS: MANUAL DIFF FLAG NO
[2024-12-02 12:24] LABS: Hematocrit 42.5 % (37.0-47.0); Hemoglobin 14.5 g/dl (12.0-16.0); Imm Gran Abs Auto 0.09 X10*3/uL (0.00-0.03); Imm Gran Pct Auto 0.5 % (0.0-0.4); Lymphocytes Absolute Auto 2.9 X10*3/uL (1.2-4.9); Mean Corpuscular HGB Conc 34.1 g/dl (31.0-35.0); Mean Corpuscular Hemoglobin 28.5 pg (27.0-33.0); Mean Corpuscular Volume 83.7 fL (80.0-98.0); NRBC Abs Auto 0.000 X10*3/uL (0.0-0.012); NRBC Pct Auto 0.0 /100WBC (0.0-0.2); Platelet Count 334 X10*3/uL (160-400); Red Blood Count 5.08 X10*6/uL (4.20-5.50); White Blood Count 18.8 X10*3/uL (4.8-10.8)
[2024-12-02 12:35] LABS: IDNOW Serial# 55D5AD1C; Strep A Nucleic Acid Positive (Negative)
[2024-12-02 12:36] LABS: Alanine Aminotransferase 67 U/L (0-31); Albumin Level 4.5 g/dL (3.5-5.0); Alkaline Phosphatase 70 U/L (39-117); Anion Gap 11 (12-20); Aspartate Amino Transferase 35 U/L (5-31); Blood Urea Nitrogen 9 mg/dL (9-16); Calcium 9.4 mg/dL (8.4-10.2); Carbon Dioxide 25 mmol/L (22-29); Chloride 110 mmol/L (96-108); Creatinine Clr Calc Pharmacy 151.3; Estimated Glomerular Filt Rate > 60; Potassium 3.7 mmol/L (3.3-5.1); Sodium 142 mmol/L (135-145); Total Protein 7.9 g/dL (6.5-8.0)
[2024-12-02 12:42] LABS: IDNOW Serial# 08D9AD1C; Influenza B2 Negative (Negative)
[2024-12-02 12:55] LABS: COVID-19 Test Negative (Negative); IDNOW Serial# 6674DD1D
[2024-12-02 13:38] VITALS: BP 117/56; PULSE 67; RESP 18; O2SAT 99
[2024-12-02 14:53] VITALS: BP 134/75; PULSE 85; RESP 18; O2SAT 100
--- NOTE | 2024-12-02 14:53 | PC.NURSE ---
Pt reporting feeling of something stuck in throat since Augmentin admin. On exam, airway patent, aside from swollen tonsils that were noted prior. Pt denies SOB and breathing easy. No oral swelling noted. Skin pink warm and dry. VSS. Dr Wilkes aware
[2024-12-02 16:03] VITALS: BP 134/75; PULSE 85; RESP 18; TEMP -17.7; TEMP 0; O2SAT 100
== END 2024-12-02 16:03 | disposition home or self-care (01) ==
PROVIDERS: Physician Assistant Medical; Emergency Provider Emergency Medicine; PCP Physician Assistant
DX: J02.0 Streptococcal pharyngitis (principal); Z79.899 Other long term (current) drug therapy; Z11.52 Encounter for screening for COVID-19
CPT/HCPCS: 80053; 85025; 85652; 86140; 87502; 87635; 87651; 99283; 99284

== ENCOUNTER 2025-01-03 11:34 | Outpatient (AMB) | payer BC, SELFPAY ==
[2025-01-03 11:56] VITALS: BP 102/60; PULSE 97; TEMP 37; O2SAT 100; BMI 40.6
--- NOTE | 2025-01-03 11:56 | AM.OFFWIN_ITS ---
Intake Vital Signs 01/03/25 11:56 Height 5 ft 3 in Weight 229 lb BMI 40.6 BP 102/60 Blood Pressure Location Rt brachial Position Sitting Pulse 97 Pulse Source Pulse Oximeter Temp 98.6 F Temp Source Oral Pulse Oximetry (%) 100 Oxygen Delivery Method Room Air Intake Visit Reasons: EP Irritated right eye Intake Note: pt presents with right eye watery, crusty, feels gritty and itchy beginning this morning Patient Tobacco Use Status: Never used Tobacco Allergies Seasonal Allergies Allergy (Mild, Verified 01/03/25 12:00) watery eyes, stuffy nose. amoxicillin Allergy (Verified 01/03/25 12:00) Swelling ibuprofen (From Motrin) Allergy (Verified 01/03/25 12:00) Palpitations Do you need a note to return to daycare/school/sports/work: Yes HPI HPI Comments History of Present Illness Details History of Present Illness - The patient is a 24-year-old female pr esenting with symptoms of eye irritation, itching, and crusting of the right eye. - The symptoms began the day before the visit, with the right eye being watery and irritated. - The following day, the eye was crusted shut with no clear identification of the crust's color. - The patient reports pain and itching, with photophobia and blurry vision due to fluid accumulation. - the patient did not recall any incitin g event, does not wear contacts Review of Systems - Eyes: Reports pain, itching, photophob ia, and blurry vision in the right eye. Denies any foreign body sensation. All systems reviewed and are unremarkable except as noted in HPI Physical Exam General: Cooperative, healthy appearing, comfortable, no acute distress and well developed Orientation: Patient oriented x3 Limitations: No limitations Head: Normal to inspection Ears: Hearing grossly normal bilaterally Nose: Normal External nose present Face and sinus: Normal facial exam Eyes: Right eye no FB noted, injected, watery, no crusting noted, 2 corneal abrasions noted on fluoroscein eye exam. Neck: Normal visual inspection and Yes full ROM Respiratory: Normal respiratory effort and able to speak in complete sentences. Skin: No rashes or lesions noted Neuro: Patient oriented x3 Extremities: Normal to inspection [facility] Medical History Morbid obesity PCOS (polycystic ovarian syndrome) Anxiety Asthma Surgical History S/P cholecystectomy Family History Mother Diabetes Hypertension Brother Hypertension Ulcerative colitis Maternal Aunt Breast cancer Maternal Grandfather FH: prostate cancer Social History Household Members: Spouse Alcohol intake: never Patient Tobacco Use Status: Never used Tobacco Agree to transfusion: Yes Physical Exam Vital Signs: Last Vital Signs Temp 98.6 F 01/03/25 11:56 Pulse 97 01/03/25 11:56 BP 102/60 01/03/25 11:56 Pulse Ox 100 01/03/25 11:56 Oxygen Delivery Method Room Air 01/03/25 11:56 BMI result Body Mass Index 40.6 Office Procedures Fluorescein eye exam Details: 2 corneal abrasions noted on fluoroscein eye exam, 0.30cm round superior to the iris and oblong 0.30cm x 0.75cm oblong inferior to iris, no FB noted Assessment & Plan Assessment & Plan (1) Corneal abrasion, right: Code(s): S05.01XA - Injury of conjunctiva and corneal abrasion without foreign body, right eye, initial encounter Qualifiers: Encounter type: initial encounter Qualified Code(s): S05.01XA - Injury of conjunctiva and corneal abrasion without foreign body, right eye, initial encounter Plan Plan Patient was informed and verbally consented to the use of an ambient scribe for clinic note documentation during this visit. Two Corneal Abrasions - RX'd erythromycin ophthalmic ointment, applied four times daily to the affected eye. - Patient advised to monitor for pain or any changes in vision and to seek further care with ED or Ophthmalogist if she experiences any pain or vision changes. Orders: Orders AMB Fluorescein eye exam Today S05.01XA - Injury of conjunctiva and corneal abrasion without foreign body, right eye, initial encounter Medications: New erythromycin Apply to left eye 4 times a day while awake 0.5 inches ophthalmic (eye) QID 3.5 grams 0RF Coding Level of Care Code Est Pt Level 3 (54186) Diagnoses Abrasion of right cornea, initial encounter S05.01XA Encounter type: initial encounter
== END 2025-01-03 12:32 | disposition home or self-care (01) ==
PROVIDERS: PCP Physician Assistant; Visit Provider Physician Assistant
DX: S05.01XA Injury of conjunctiva and corneal abrasion without foreign body, right eye, initial encounter (principal)